=== PATIENT | male | born 1940 | race Caucasian/White ===

== ENCOUNTER → 2018-02-03 08:30 | Outpatient (CLI) | payer MEDICARE, SELFPAY ==
[2018-02-03 09:02] LABS: Hematocrit 43.4 % (41-53); Hemoglobin 15.3 g/dL (13.5-17.5); Mean Corpuscular HGB Conc 35.1 % (30-36); Platelet Count 184 X10^3/uL (150-400); Red Blood Cell Count 4.77 X10^6/uL (4.5-5.9); Red Cell Distribution Width 12.9 % (11.6-14.8); White Blood Cell Count 9.3 X10^3/uL (4.5-11.0)
[2018-02-03 09:33] LABS: Alanine Aminotransferase 22 IU/L (21-72); Albumin 4.2 g/dL (3.5-5.0); Albumin Globulin Ratio 1.7 (1.0-2.8); Alkaline Phosphatase 72 U/L (38-126); Aspartate Aminotransferase 19 IU/L (17-59); BUN Creatinine Ratio 21.8 (6-22); Blood Urea Nitrogen 24 mg/dL (9-20); Calcium 9.1 mg/dL (8.4-10.2); Carbon Dioxide 26 mmol/L (22-32); Chloride 106 mmol/L (98-107); Cholesterol 102 mg/dL (140-199); Estimated Glomerular Filt Rate > 60.0 mL/min (>60); Globulin 2.5 g/dL (1.7-4.1); Glucose 122 mg/dL (80-110); HDL Cholesterol 47 mg/dL (40-60); HEMOLYSIS < 15 (0-50); LDL Cholesterol Calculated 41 mg/dL (<100); Potassium 4.5 mmol/L (3.4-5.1); Sodium 143 mmol/L (137-145); Total Protein 6.7 g/dL (6.3-8.2); Triglycerides 71 mg/dL (35-150)
[2018-02-03 09:51] LABS: Neutrophils Absolute Manual 6138 /uL (3000-5900); RBC Morphology Normal Morphology; Total Cells Counted 100
[2018-02-03 09:58] LABS: Prostate Specific Antigen Scrn 4.03 ng/mL (0.1-4.0)
[2018-02-03 10:03] LABS: Thyroid Stimulating Hormone 2.99 uIU/mL (0.47-4.68)
[2018-02-04 13:41] LABS: Hemoglobin A1C% w Est Avg Glu 5.1 % (4.0-6.0)
== END ==
PROVIDERS: PCP Family Medicine; Visit Provider Family Medicine
DX: E03.9 Hypothyroidism, unspecified (principal); E78.5 Hyperlipidemia, unspecified; I10 Essential (primary) hypertension; I25.10 Atherosclerotic heart disease of native coronary artery without angina pectoris; R73.09 Other abnormal glucose
CPT/HCPCS: 36415; 80053; 80061; 83036; 84443; 85025; G0103

== ENCOUNTER → 2018-03-08 11:11 | Outpatient (CLI) | payer OTHER, SELFPAY ==
[2018-03-08 13:24] LABS: Clostridium Difficile Tox PCR Negative for C. diff
== END ==
PROVIDERS: PCP Family Medicine; Visit Provider Registered Nurse
DX: R19.7 Diarrhea, unspecified (principal)
CPT/HCPCS: 87015; 87045; 87177; 87427; 87493; 87899

== ENCOUNTER → 2018-06-13 13:20 | Outpatient (CLI) | payer MEDICARE, SELFPAY ==
--- NOTE | 2018-06-13 13:22 | DI.RAD.S_ITS ---
PROCEDURE: XR CHEST 2V INDICATIONS: follow up pleural effusion TECHNIQUE: 2 views of the chest were acquired. COMPARISON: [facility], CHEST 2 VIEW, 06/15/2016, 10:54. [facility], , CHEST 1 VIEW, 01/08/2015, 10:34. FINDINGS: Surgical changes and devices: Pacemaking device and single lead appear normal. Lungs and pleura: Lungs are clear except for a mild interstitial prominence and relatively large lung volumes. No left-sided pleural effusions or pneumothorax. Scant right-sided pleural effusion incidentally noted, minimal in quantity. Mediastinum: Mediastinal contours are normal. Heart size is normal. Bones and chest wall: No suspicious bony abnormalities. Soft tissues appear unremarkable. IMPRESSION: Large lung volumes, no acute disease, pacemaker appears normal. Suspect prior smoking history. Scant right effusion. Dictated by: Los Madera M.D. on 06/13/2018 at 14:08 Approved by: Los Madera M.D. on 06/13/2018 at 14:10
== END ==
PROVIDERS: PCP Family Medicine; Visit Provider Hospitalist
DX: J90 Pleural effusion, not elsewhere classified (principal); Z95.0 Presence of cardiac pacemaker
CPT/HCPCS: 71046

== ENCOUNTER → 2018-10-15 12:50 | Outpatient (CLI) | payer MEDICARE, SELFPAY ==
[2018-10-15 14:42] LABS: Hematocrit 43.4 % (41-53); Hemoglobin 15.1 g/dL (13.5-17.5); Mean Corpuscular HGB Conc 34.9 % (30-36); Mean Corpuscular Hemoglobin 32.2 PG (26-34); Mean Corpuscular Volume 92.2 fL (80-100); Platelet Count 182 X10^3/uL (150-400); Red Cell Distribution Width 13.4 % (11.6-14.8); White Blood Cell Count 9.7 X10^3/uL (4.5-11.0)
[2018-10-15 15:07] LABS: Neutrophils Absolute Manual 6596 /uL (3000-5900); Total Cells Counted 100
[2018-10-15 15:08] LABS: RBC Morphology Normal Morphology
[2018-10-15 15:29] LABS: Alanine Aminotransferase 15 IU/L (21-72); Albumin 4.4 g/dL (3.5-5.0); Albumin Globulin Ratio 1.8 (1.0-2.8); Alkaline Phosphatase 76 U/L (38-126); Aspartate Aminotransferase 19 IU/L (17-59); BUN Creatinine Ratio 24.5 (6-22); Bilirubin Total 1.9 mg/dL (0.2-1.3); Blood Urea Nitrogen 27 mg/dL (9-20); Calcium 9.8 mg/dL (8.4-10.2); Carbon Dioxide 27 mmol/L (22-32); Chloride 103 mmol/L (98-107); Estimated Glomerular Filt Rate > 60.0 mL/min (>60); Globulin 2.5 g/dL (1.7-4.1); Glucose 97 mg/dL (80-110); HEMOLYSIS < 15 (0-50); Sodium 139 mmol/L (137-145); Total Protein 6.9 g/dL (6.3-8.2)
[2018-10-15 15:31] LABS: Potassium 5.9 mmol/L (3.4-5.1)
== END ==
PROVIDERS: PCP Family Medicine; Visit Provider Family Medicine
DX: R19.7 Diarrhea, unspecified (principal)
CPT/HCPCS: 36415; 80053; 85025

== ENCOUNTER → 2018-10-16 10:14 | Outpatient (CLI) | payer MEDICARE, SELFPAY ==
[2018-10-16 13:03] LABS: Campylobacter Not Detected (Not Detect); Clostridium difficile toxin AB Not Detected (Not Detect); Cryptosporidium Not Detected (Not Detect); Cyclospora cayetanensis Not Detected (Not Detect); Entamoeba histolytica Not Detected (Not Detect); Enteroaggregative E.coli Not Detected (Not Detect); Enteropathogenic E.coli Not Detected (Not Detect); Enterotoxigenic E.coli It/st Not Detected (Not Detect); Giardia lamblia Not Detected (Not Detect); Plesiomonsa shigelloides Not Detected (Not Detect); Salmonella Not Detected (Not Detect); Shiga-like toxin-prod E.coli Not Detected (Not Detect); Shigella/Enteroinvasive E.coli Not Detected (Not Detect); Vibrio Not Detected (Not Detect); Vibrio cholerae Not Detected (Not Detect); Yersinia enterocolitica Not Detected (Not Detect)
[2018-10-16 13:04] LABS: Adenovirus F 40/41 Not Detected (Not Detect); Astrovirus Not Detected (Not Detect); Norovirus GI/GII Not Detected (Not Detect); Rotavirus A Not Detected (Not Detect)
[2018-10-16 13:22] LABS: Clostridium Difficile Tox PCR Negative for C. diff
== END ==
PROVIDERS: PCP Family Medicine; Visit Provider Family Medicine
DX: R19.7 Diarrhea, unspecified (principal)
CPT/HCPCS: 87493; 87507

== ENCOUNTER → 2018-10-31 14:05 | Outpatient (CLI) | payer MEDICARE, SELFPAY ==
[2018-10-31 15:17] LABS: HEMOLYSIS < 15 (0-50)
[2018-10-31 15:20] LABS: Potassium 5.5 mmol/L (3.4-5.1)
== END ==
PROVIDERS: PCP Family Medicine; Visit Provider Family Medicine
DX: E87.5 Hyperkalemia (principal)
CPT/HCPCS: 36415; 84132

== ENCOUNTER → 2018-12-08 10:59 | Outpatient (CLI) | payer MEDICARE, SELFPAY ==
[2018-12-08 11:34] LABS: BUN Creatinine Ratio 24.2 (6-22); Blood Urea Nitrogen 29 mg/dL (9-20); Calcium 9.3 mg/dL (8.4-10.2); Carbon Dioxide 28 mmol/L (22-32); Chloride 107 mmol/L (98-107); Estimated Glomerular Filt Rate 58.3 mL/min (>60); Glucose 75 mg/dL (80-110); HEMOLYSIS < 15 (0-50); Potassium 4.8 mmol/L (3.4-5.1); Sodium 141 mmol/L (137-145)
--- NOTE | 2018-12-08 12:23 | DI.CT.S_ITS ---
PROCEDURE: CT ABDOMEN PELVIS W CON INDICATIONS: Unspecified jaundice/ LAB TECHNIQUE: After the administration of oral and intravenous contrast, 5 mm thick sections acquired from the diaphragms to the symphysis. 5 mm thick coronal and sagittal reformats were performed. For radiation dose reduction, the following was used: automated exposure control, adjustment of mA and/or kV according to patient size. COMPARISON: None. FINDINGS: Image quality: Excellent. ABDOMEN: Lung bases: Lung bases are abnormal with an appearance suggestive of COPD and alveolar scarring at the right lung base. Lung base atelectasis also could produce the appearance, greater on the right than the left. Heart size is normal. Solid organs: Liver is normal in size and enhancement. Gallbladder contains small rounded densely calcified gallstones within the dependent margin of the gallbladder, without acute cholecystitis or biliary obstruction. These calculi range in size from 3 mm to 6 mm. Biliary system is non-dilated. Pancreas enhances normally. Spleen is normal in size and enhancement. No adrenal nodules. Kidneys are normal in size and enhancement, without hydronephrosis. Peritoneum and bowel: Stomach, small bowel, and colon loops are normal in caliber and wall thickness. No free fluid or air. Nodes and vessels: No retroperitoneal or mesenteric adenopathy. Aorta and inferior vena cava are normal in caliber. Miscellaneous: No ventral hernias. PELVIS: Genitourinary: Bladder wall thickness is normal. Miscellaneous: No inguinal hernias or adenopathy. Bones: No suspicious bony lesions. No vertebral body compression fractures. IMPRESSION: Currently a definite source of acute onset jaundice is not found. Specifically a calcified gallstone within the common duct is not seen nor is biliary distention. The small calculi present within the gallbladder lumen are of a size that easily could transit into the cystic duct and the common duct, and perhaps complete passage of a gallstone explains the symptomatology (a densely calcified gallstone currently present would be easily visualized along the course of the common duct). Surgical consultation likely is warranted. No sign of hepatitis or pancreatitis. Dictated by: Los Madera M.D. on 12/08/2018 at 14:39 Approved by: Los Madera M.D. on 12/08/2018 at 14:48
== END ==
PROVIDERS: Family Provider Family Medicine; PCP Family Medicine; Visit Provider Physician Assistant
DX: R17 Unspecified jaundice (principal); R19.4 Change in bowel habit; K80.20 Calculus of gallbladder without cholecystitis without obstruction
CPT/HCPCS: 36415; 74177; 80048; Q9967

== ENCOUNTER → 2019-10-16 07:36 | Outpatient (CLI) | payer MEDICARE, SELFPAY ==
[2019-10-16 09:04] LABS: Add Manual Diff / Slide Review NO; Basophils Absolute Auto 100 /uL (0-100); Basophils Percent Auto 0.8 % (0-2); Eosinophils Absolute Auto 700 /uL (0-450); Eosinophils Percent Auto 8.4 % (2-4); Hematocrit 40.5 % (41-53); Hemoglobin 14.3 g/dL (13.5-17.5); Lymphocytes Absolute Auto 1400 /uL (1100-4500); Lymphocytes Percent Auto 16.2 % (25-40); Mean Corpuscular HGB Conc 35.2 % (30-36); Mean Corpuscular Volume 90.9 fL (80-100); Monocytes Absolute Auto 600 /uL (0-900); Monocytes Percent Auto 6.5 % (3-14); Neutrophils Absolute Auto 6000 /uL (1500-7000); Neutrophils Percent Auto 68.1 % (50-75); Platelet Count 156 X10^3/uL (150-400); Red Blood Cell Count 4.45 X10^6/uL (4.5-5.9); Red Cell Distribution Width 13.3 % (11.6-14.8); White Blood Cell Count 8.8 X10^3/uL (4.5-11.0)
[2019-10-16 09:14] LABS: Alanine Aminotransferase 13 IU/L (<50); Albumin 4.1 g/dL (3.5-5.0); Albumin Globulin Ratio 1.7 (1.0-2.8); Alkaline Phosphatase 69 U/L (38-126); Aspartate Aminotransferase 19 IU/L (17-59); Bilirubin Total 1.1 mg/dL (0.2-1.3); Blood Urea Nitrogen 32 mg/dL (9-20); Calcium 9.5 mg/dL (8.4-10.2); Carbon Dioxide 22 mmol/L (22-32); Chloride 106 mmol/L (98-107); Cholesterol 104 mg/dL (140-199); Estimated Glomerular Filt Rate 53.9 mL/min (>60); Globulin 2.4 g/dL (1.7-4.1); Glucose 104 mg/dL (80-110); HDL Cholesterol 47 mg/dL (40-60); HEMOLYSIS < 15 (0-50); LDL Cholesterol Calculated 42 mg/dL (<100); Potassium 4.3 mmol/L (3.4-5.1); Sodium 137 mmol/L (137-145); Total Protein 6.5 g/dL (6.3-8.2); Triglycerides 76 mg/dL (35-150)
[2019-10-16 09:40] LABS: Thyroid Stimulating Hormone 3.76 uIU/mL (0.47-4.68)
== END ==
PROVIDERS: Family Provider Family Medicine; PCP Family Medicine; Referring Provider Family Medicine; Visit Provider Family Medicine
DX: E03.9 Hypothyroidism, unspecified (principal); E78.5 Hyperlipidemia, unspecified; I10 Essential (primary) hypertension; I25.10 Atherosclerotic heart disease of native coronary artery without angina pectoris; I25.5 Ischemic cardiomyopathy; I48.91 Unspecified atrial fibrillation; R79.89 Other specified abnormal findings of blood chemistry
CPT/HCPCS: 36415; 80053; 80061; 84443; 85025

== ENCOUNTER → 2019-10-24 13:34 | Outpatient (CLI) | payer MEDICARE, SELFPAY ==
[2019-10-25 09:26] LABS: COVID19 Sendout Not Detected (Not Detect)
== END ==
PROVIDERS: Family Provider Family Medicine; PCP Family Medicine; Visit Provider Physician Assistant
DX: Z11.59 Encounter for screening for other viral diseases (principal)
CPT/HCPCS: 87635

== ENCOUNTER → 2019-10-27 10:09 | Outpatient (CLI) | payer MEDICARE, SELFPAY ==
--- NOTE | 2019-10-27 19:39 | DI.NM.S_ITS ---
DATE OF SERVICE: 10/27/2019 PROCEDURE: Exercise perfusion study. INDICATION: Anterior wall WI, severe ischemic cardiomyopathy, hypertension. RADIOPHARMACEUTICAL: 26.3 millicurie technetium-99m Myoview IV was injected at stress and 12.1 millicurie technetium-99m Myoview IV was injected at rest. CARDIAC STRESS: The patient underwent exercise perfusion study under the supervision of an attending staff using a standard Lv protocol. The patient walked on Lv protocol for 8 minutes 24 seconds and achieved 99 percent of target heart rate with normal blood pressure response. Baseline EKG revealed sinus rhythm with evidence of old anterior wall WI. During stress, significant artifacts seen, which make EKG uninterpretable; however, in 1 minute of recovery, there were some nonspecific ST changes. Some PVCs, including ventricular couplets seen, without any sustained ventricular tachycardia. No chest pain or anginal symptoms. The patient achieved 10.1 METS of workload, NU -58 percent. RAW DATA: There is increased subdiaphragmatic activity. GATED STUDY: Stress LV ejection fraction 27 percent and resting LV ejection fraction 25 percent with significant hypokinesis of mid to distal anterior wall, entire apex, as well as anterior septum. Resting end-diastolic volume 302 mL, suggestive of significantly dilated left ventricle. TID ratio 0.97, which is within normal limits. Lung/heart ratio 0.39 which is within normal limits. MYOCARDIAL PERFUSION: Stress supine, resting supine and stress prone images were compared to each other. 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 No significant reversible ischemia. CONCLUSION: This is an abnormal myocardial perfusion study, consistent with large infarction in the proximal LAD territory, as stated above, without any significant reversible ischemia. Excellent exercise tolerance. Functional aerobic impairment -58 percent. The stress left ventricular ejection fraction 27 percent. The left ventricle is significantly enlarged. Intermittent PVCs were seen without any sustained ventricular tachycardia. Nidia, Duncan - Dayana/daryn doc#: [id number]/job#: [id number] dd: 10/27/2019 16:23:00 dt: 10/27/2019 19:29:00 DICTATING MD/COPIES TO: Aria Ahmadi MD COPIES MNE: MEKHI;
== END ==
PROVIDERS: Family Provider Family Medicine; PCP Family Medicine; Referring Provider Family Medicine; Visit Provider Physician Assistant
DX: R94.39 Abnormal result of other cardiovascular function study (principal); I25.5 Ischemic cardiomyopathy; I10 Essential (primary) hypertension; I25.2 Old myocardial infarction; I49.3 Ventricular premature depolarization
CPT/HCPCS: 78452; 93017; A9502

== ENCOUNTER → 2019-12-04 14:06 | Outpatient (CLI) | payer MEDICARE, SELFPAY ==
[2019-12-04 18:42] LABS: BUN Creatinine Ratio 26.5 (6-22); Blood Urea Nitrogen 31 mg/dL (9-20); Calcium 9.1 mg/dL (8.4-10.2); Carbon Dioxide 28 mmol/L (22-32); Chloride 104 mmol/L (98-107); Estimated Glomerular Filt Rate 59.8 mL/min (>60); Glucose 94 mg/dL (80-110); HEMOLYSIS < 15 (0-50); Potassium 4.8 mmol/L (3.4-5.1); Sodium 139 mmol/L (137-145)
== END ==
PROVIDERS: Family Provider Family Medicine; PCP Family Medicine; Referring Provider Family Medicine; Visit Provider Family Medicine
DX: R79.89 Other specified abnormal findings of blood chemistry (principal)
CPT/HCPCS: 36415; 80048

== ENCOUNTER → 2020-06-06 11:42 | Outpatient (CLI) | payer MEDICARE, SELFPAY ==
[2020-06-06 14:02] LABS: COVID19 -Nasal RAPID Negative (Negative)
== END ==
PROVIDERS: PCP Family Medicine; Visit Provider Physician Assistant
DX: Z20.822 Contact with and (suspected) exposure to COVID-19 (principal)
CPT/HCPCS: 87635; C9803

== ENCOUNTER → 2020-08-02 11:50 | Outpatient (CLI) | payer MEDICARE, SELFPAY ==
[2020-08-02 12:35] LABS: Add Manual Diff / Slide Review NO; Basophils Absolute Auto 0 /uL (0-100); Basophils Percent Auto 0.4 % (0-2); Eosinophils Absolute Auto 700 /uL (0-450); Eosinophils Percent Auto 6.6 % (2-4); Hematocrit 40.1 % (41-53); Hemoglobin 13.9 g/dL (13.5-17.5); Lymphocytes Absolute Auto 1300 /uL (1100-4500); Lymphocytes Percent Auto 11.7 % (25-40); Mean Corpuscular HGB Conc 34.7 % (30-36); Mean Corpuscular Hemoglobin 30.9 PG (26-34); Monocytes Absolute Auto 600 /uL (0-900); Monocytes Percent Auto 5.8 % (3-14); Neutrophils Absolute Auto 8400 /uL (1500-7000); Neutrophils Percent Auto 75.5 % (50-75); Platelet Count 216 X10^3/uL (150-400); Red Blood Cell Count 4.51 X10^6/uL (4.5-5.9); Red Cell Distribution Width 12.9 % (11.6-14.8); White Blood Cell Count 11.1 X10^3/uL (4.5-11.0)
[2020-08-02 12:51] LABS: Alanine Aminotransferase 13 IU/L (<50); Albumin Globulin Ratio 1.4 (1.0-2.8); Alkaline Phosphatase 89 U/L (38-126); Aspartate Aminotransferase 18 IU/L (17-59); BUN Creatinine Ratio 23.8 (6-22); Bilirubin Total 1.1 mg/dL (0.2-1.3); Blood Urea Nitrogen 25 mg/dL (9-20); C-Reactive Protein Quant 1.9 mg/dL (<1.0); Calcium 9.7 mg/dL (8.4-10.2); Carbon Dioxide 24 mmol/L (22-32); Chloride 105 mmol/L (98-107); Estimated Glomerular Filt Rate > 60.0 mL/min (>60); Globulin 2.9 g/dL (1.7-4.1); Glucose 102 mg/dL (80-110); HEMOLYSIS < 15 (0-50); Potassium 4.8 mmol/L (3.4-5.1); Rheumatoid Factor < 8.6 IU/mL (<12.0); Sodium 137 mmol/L (137-145); Total Protein 6.9 g/dL (6.3-8.2)
[2020-08-02 13:02] LABS: Erythrocyte Sedimentation Rate 21 MM/HR (0-15)
[2020-08-02 13:27] LABS: TSH w/ Reflex to FT4 4.03 uIU/mL (0.47-4.68)
[2020-08-04 20:38] LABS: CCP Antibodies IgG/IgA 5 units (0-19)
[2020-08-05 14:08] LABS: ANA Screen, IFA Positive (.)
== END ==
PROVIDERS: PCP Family Medicine; Referring Provider Family Medicine; Visit Provider Family Medicine
DX: M25.50 Pain in unspecified joint (principal); R53.83 Other fatigue
CPT/HCPCS: 36415; 80053; 84443; 85025; 85651; 86038; 86140; 86200; 86430

== ENCOUNTER → 2020-08-23 15:33 | Outpatient (CLI) | payer MEDICARE, SELFPAY ==
--- NOTE | 2020-08-23 15:34 | DI.RAD.S_ITS ---
PROCEDURE: XR HAND RT MIN 3V INDICATIONS: joint pain TECHNIQUE: 3 views of the hand(s) acquired. COMPARISON: None. FINDINGS: Bones: No fractures or dislocations. Carpal bones are normally aligned. No suspicious bony lesions. Mild diffuse joint space narrowing involving the interphalangeal joints and there are several juxta-articular lucencies also present which may represent small erosions. Soft tissues: No suspicious soft tissue calcifications. IMPRESSION: Diffuse joint space narrowing of the interphalangeal joints and multiple juxta-articular lucencies which may represent small bony erosions. Dictated by: Reynaldo HOYT Interpreted: Los Madera MD on 08/23/2020 at 16:08 Transcribed by: HERMAN on 08/23/2020 at 16:08 Approved by: Los Madera M.D. on 08/24/2020 at 7:32
--- NOTE | 2020-08-23 15:34 | DI.RAD.S_ITS ---
PROCEDURE: XR WRIST LT MIN 3V INDICATIONS: joint pain TECHNIQUE: 4 views of the wrist were acquired. COMPARISON: None. FINDINGS: Bones: No fractures or dislocations. No suspicious bony lesions. Scaphoid view: No trauma. Soft tissues: No suspicious soft tissue calcifications. IMPRESSION: No trauma found. Mild degenerative joint space narrowing at the interface between the distal scaphoid and the base of the trapezium. 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 No erosive arthritis found. Dictated by: Los Madera M.D. on 08/23/2020 at 16:46 Approved by: Los Madera M.D. on 08/23/2020 at 16:47
--- NOTE | 2020-08-23 15:34 | DI.RAD.S_ITS ---
PROCEDURE: XR HAND LT MIN 3V INDICATIONS: joint pain TECHNIQUE: 3 views of the hand(s) acquired. COMPARISON: None. FINDINGS: Bones: No fractures or dislocations. Carpal bones are normally aligned. No suspicious bony lesions. Mild diffuse joint space narrowing with periarticular osteophyte formation involving the interphalangeal joints. Juxta-articular lucencies are present involving multiple interphalangeal joints as well as the 1st MCP joint. Soft tissues: No suspicious soft tissue calcifications. IMPRESSION: Diffuse joint space narrowing of the interphalangeal joints and multiple juxta-articular lucencies which may represent small bony erosions. Dictated by: Reynaldo Myers [facility] Interpreted: Los Madera MD on 08/23/2020 at 16:06 Transcribed by: HERMAN on 08/23/2020 at 16:07 Approved by: [place] Madera M.D. on 08/24/2020 at 7:32
--- NOTE | 2020-08-23 15:34 | DI.RAD.S_ITS ---
PROCEDURE: XR WRIST RT MIN 3V INDICATIONS: joint pain TECHNIQUE: For views of the wrist were acquired. COMPARISON: None. FINDINGS: Bones: No fractures or dislocations. No suspicious bony lesions. There is mild osteoarthritis at the radiocarpal joint. No erosive arthritis is found. No prior trauma identified. Scaphoid view: No trauma. Soft tissues: No suspicious soft tissue calcifications. IMPRESSION: Mild osteoarthritis, no prior trauma. Dictated by: Los Madera M.D. on 08/23/2020 at 16:47 Approved by: Los Madera M.D. on 08/23/2020 at 16:47
== END ==
PROVIDERS: PCP Family Medicine; Referring Provider Family Medicine; Visit Provider Family Medicine
DX: M79.89 Other specified soft tissue disorders; M25.542 Pain in joints of left hand; M25.541 Pain in joints of right hand; M25.532 Pain in left wrist; M25.531 Pain in right wrist; M19.031 Primary osteoarthritis, right wrist
CPT/HCPCS: 73110; 73130

== ENCOUNTER → 2020-09-30 13:59 | Outpatient (CLI) | payer MEDICARE, SELFPAY ==
--- NOTE | 2020-09-30 | DI.RAD.S_ITS ---
PROCEDURE: XR KNEE RT 3V INDICATIONS: PAIN TECHNIQUE: 3 views of the knee were acquired. COMPARISON: [facility], CR, XR KNEE LT 3V, 09/30/2020, 14:41. FINDINGS: Bones: No fractures or dislocations. No suspicious bony lesions. Joints are well maintained. Soft tissues: Small joint effusion. No suspicious soft tissue calcifications. IMPRESSION: Small knee joint effusion; otherwise normal right knee. Dictated by: Reynaldo Myers RR Interpreted: Dominique Becerra MD on 09/30/2020 at 15:29 Transcribed by: CARL on 09/30/2020 at 15:29 Approved by: Dominique Becerra M.D. on 09/30/2020 at 15:35
--- NOTE | 2020-09-30 14:09 | DI.RAD.S_ITS ---
PROCEDURE: XR FOOT LT MIN 3V INDICATIONS: A TECHNIQUE: 3 views of the foot were acquired. COMPARISON: None. FINDINGS: Bones: No fractures or dislocations. No suspicious bony lesions. Small retrocalcaneal and plantar bone spurs. Soft tissues: No tibiotalar joint effusion. Achilles tendon appears normal. IMPRESSION: Mild calcaneal enthesopathy; otherwise no definite radiographic abnormality. If pain persists with conservative management, consider cross sectional imaging such as CT or MRI for further assessment. Dictated by: Reynaldo GARCIA Interpreted: Dominique Becerra MD on 09/30/2020 at 15:28 Transcribed by: CARL on 09/30/2020 at 15:28 Approved by: Dominique Becerra M.D. on 09/30/2020 at 15:34
--- NOTE | 2020-09-30 14:09 | DI.RAD.S_ITS ---
PROCEDURE: XR HIP W PEL IF DONE BILAT 2V INDICATIONS: PAIN TECHNIQUE: AP pelvis with lateral view(s) of the bilateral hip(s). COMPARISON: [facility], CT, CT ABDOMEN PELVIS W CON, 12/08/2018, 12:22. FINDINGS: Bones: No fractures or dislocations. Pelvic ring appears intact. No suspicious bony lesions. Mild bilateral symmetric hip joint space narrowing with periarticular osteophyte formation. Degenerative disc and facet disease involves the inferior lumbar spine. Soft tissues: The visualized bowel gas pattern is normal. No suspicious soft tissue calcifications. IMPRESSION: Mild symmetric hip joint degeneration. Dictated by: Reynaldo HOYT Interpreted: Dominique Becerra MD on 09/30/2020 at 15:16 Transcribed by: CARL on 09/30/2020 at 15:17 Approved by: Dominique Becerra M.D. on 09/30/2020 at 15:34
--- NOTE | 2020-09-30 14:09 | DI.RAD.S_ITS ---
PROCEDURE: XR CHEST 2V INDICATIONS: PAIN TECHNIQUE: 2 views of the chest were acquired. COMPARISON: [facility], CT, CT ABDOMEN PELVIS W CON, 12/08/2018, 12:22. [facility], CR, XR CHEST 2VW, 01/19/2015, 7:39. CR, CHEST 2 VIEW, 06/15/2016, 10:54. [facility], CR, XR CHEST 2V, 06/13/2018, 13:25. FINDINGS: Surgical changes and devices: Stable positioning of left chest AICD. Lungs and pleura: Right basilar scarring redemonstrated. There is prominence of the pulmonary vasculature and there is diffuse, widespread bilateral interstitial opacities which appear increased from prior chest radiograph dated 06/13/2018. No pneumothorax. Mediastinum: Mediastinal contours are normal. Heart size is enlarged. Bones and chest wall: No suspicious bony abnormalities. Soft tissues appear unremarkable. IMPRESSION: 1. Chronic right basilar scar pleural scarring. 2. Prominence of the pulmonary vasculature and diffuse bilateral interstitial opacities increased from prior examination. Pulmonary edema or atypical infection cannot be excluded and clinical correlation is and follow-up recommended. Dictated by: Reynaldo GARCIA Interpreted: Dominique Becerra MD on 09/30/2020 at 15:18 Transcribed by: CARL on 09/30/2020 at 15:26 Approved by: Dominique Becerra M.D. on 09/30/2020 at 15:35
--- NOTE | 2020-09-30 14:09 | DI.RAD.S_ITS ---
PROCEDURE: XR FOOT RT MIN 3V INDICATIONS: PAIN TECHNIQUE: 3 views of the foot were acquired. COMPARISON: None. FINDINGS: Bones: No fractures or dislocations. No suspicious bony lesions. Soft tissues: No tibiotalar joint effusion. Achilles tendon appears normal. IMPRESSION: No definite radiographic abnormality. If pain persists with conservative management, consider cross sectional imaging such as CT or MRI for further assessment. Dictated by: Reynaldo Myers [facility] Interpreted: Dominique Becerra MD on 09/30/2020 at 15:27 Transcribed by: CARL on 09/30/2020 at 15:28 Approved by: Dominique Becerra M.D. on 09/30/2020 at 15:36
--- NOTE | 2020-09-30 14:10 | DI.RAD.S_ITS ---
PROCEDURE: XR KNEE LT 3V INDICATIONS: PAIN TECHNIQUE: 3 views of the knee were acquired. COMPARISON: [facility], CR, XR KNEE RT 3V, 09/30/2020, 14:41. FINDINGS: Bones: No fractures or dislocations. No suspicious bony lesions. Joints are well maintained. Soft tissues: Trace joint effusion. No suspicious soft tissue calcifications. IMPRESSION: Trace joint effusion; otherwise no definite radiographic abnormality. If pain persists with conservative management, consider cross sectional imaging such as CT or MRI for further assessment. Dictated by: Reynaldo Myers Cory Interpreted: Dominique Becerra MD on 09/30/2020 at 15:18 Transcribed by: CARL on 09/30/2020 at 15:18 Approved by: Dominique Becerra M.D. on 09/30/2020 at 15:35
[2020-09-30 14:29] LABS: Bacteria Urine None Seen; RBC Urine None Seen (0-5/HPF)
[2020-09-30 15:39] LABS: Add Manual Diff / Slide Review NO; Basophils Absolute Auto 100 /uL (0-100); Basophils Percent Auto 0.5 % (0-2); Eosinophils Absolute Auto 300 /uL (0-450); Eosinophils Percent Auto 2.5 % (2-4); Hematocrit 39.7 % (41-53); Hemoglobin 13.5 g/dL (13.5-17.5); Lymphocytes Absolute Auto 900 /uL (1100-4500); Lymphocytes Percent Auto 8.1 % (25-40); Mean Corpuscular Hemoglobin 30.4 PG (26-34); Mean Corpuscular Volume 89.3 fL (80-100); Monocytes Absolute Auto 700 /uL (0-900); Monocytes Percent Auto 6.7 % (3-14); Neutrophils Absolute Auto 8800 /uL (1500-7000); Neutrophils Percent Auto 82.2 % (50-75); Platelet Count 189 X10^3/uL (150-400); Red Blood Cell Count 4.45 X10^6/uL (4.5-5.9); Red Cell Distribution Width 15.4 % (11.6-14.8); White Blood Cell Count 10.7 X10^3/uL (4.5-11.0)
[2020-09-30 15:48] LABS: Alanine Aminotransferase 16 IU/L (<50); Albumin 3.9 g/dL (3.5-5.0); Albumin Globulin Ratio 1.3 (1.0-2.8); Alkaline Phosphatase 69 U/L (38-126); Aspartate Aminotransferase 19 IU/L (17-59); BUN Creatinine Ratio 22.1 (6-22); Bilirubin Total 1.6 mg/dL (0.2-1.3); Blood Urea Nitrogen 29 mg/dL (9-20); C-Reactive Protein Quant 3.7 mg/dL (<1.0); Calcium 9.4 mg/dL (8.4-10.2); Carbon Dioxide 24 mmol/L (22-32); Chloride 106 mmol/L (98-107); Estimated Glomerular Filt Rate 52.4 mL/min (>60); Globulin 2.9 g/dL (1.7-4.1); Glucose 136 mg/dL (80-110); HEMOLYSIS < 15 (0-50); Potassium 4.6 mmol/L (3.4-5.1); Sodium 138 mmol/L (137-145); Total Protein 6.8 g/dL (6.3-8.2); Uric Acid 7.5 mg/dL (3.5-8.5)
[2020-09-30 15:50] LABS: Rheumatoid Factor < 8.6 IU/mL (<12.0)
[2020-09-30 16:01] LABS: Erythrocyte Sedimentation Rate 17 MM/HR (0-15)
[2020-09-30 16:33] LABS: Appearance Urine UA CLEAR; Bilirubin Urine UA NEGATIVE (NEGATIVE); Color Urine UA YELLOW; Glucose Urine UA NEGATIVE (Negative); Ketones Urine UA NEGATIVE (NEGATIVE); Leukocyte Esterase Urine UA NEGATIVE (NEGATIVE); Nitrite Urine UA NEGATIVE (Negative); Occult Blood Urine UA NEGATIVE (Negative); Protein Urine UA NEGATIVE (Negative); Specific Gravity Urine UA 1.015 (1.000-1.035); Urobilinogen Urine UA 0.2 E.U./dL (0.2); pH Urine UA 6.5 (4.5-8.0)
[2020-09-30 16:42] LABS: Hyaline Casts Urine 5-10/LPF; Squamous Epithelial Cell Urine 0-1 /HPF (0-5/HPF); WBC Urine 1-5/HPF (0-5/HPF)
[2020-09-30 16:43] LABS: Culture Indicated Urine Cult Not Indicated; Mucus Urine 2+ (Negative)
[2020-09-30 16:58] LABS: Protein (Total) Urine Random < 5 mg/dL (0-12)
[2020-10-01 06:27] LABS: Complement C3 121 mg/dL (82-167)
[2020-10-01 18:24] LABS: DNA (DS) Antibody 1 IU/mL (0-9); SS A Ro Sjogrens Antibody < 0.2 AI (0.0-0.9); SS B La Sjogrens Antibody < 0.2 AI (0.0-0.9)
[2020-10-02 19:24] LABS: Complement Total CH50 > 60 U/mL (>41)
[2020-10-03 14:08] LABS: Albumin 3.5 g/dL (2.9-4.4); Alpha-1-Globulin 0.3 g/dL (0.0-0.4); Alpha-2-Globulin 0.8 g/dL (0.4-1.0); Gamma Globulin 0.7 g/dL (0.4-1.8); Globulin Total 2.7 g/dL (2.2-3.9); Protein, Total 6.2 g/dL (6.0-8.5)
[2020-10-03 16:21] LABS: Hep C Virus Ab w/Reflex Quant NEGATIVE s/c (NEGATIVE); Hepatitis B Surface Antigen NEGATIVE s/c (NEGATIVE)
[2020-10-03 21:18] LABS: CCP Antibodies IgG/IgA 5 units (0-19)
[2020-10-04 11:30] LABS: Cytoplasmic C-ANCA <1:20 titer (Neg:<1:20); Perinuclear P-ANCA <1:20 titer (Neg:<1:20)
[2020-10-04 15:57] LABS: Beta Globulin, Ur 30.2 % (.); M-Spike % Not Observed % (Not Observed); Urine Total Protein 11.2 mg/dL (Not Estab.)
[2020-10-05 23:14] LABS: QuantiFERON Mitogen Value >10.00 IU/mL (.); QuantiFERON TB Gold Plus Negative (Negative); QuantiFERON TB1 Ag Value 0.14 IU/mL (.); QuantiFERON TB2 Ag Value 0.16 IU/mL (.)
== END ==
PROVIDERS: PCP Family Medicine; Referring Provider Nurse Practitioner; Visit Provider Nurse Practitioner
DX: M06.4 Inflammatory polyarthropathy (principal); J84.9 Interstitial pulmonary disease, unspecified; M16.0 Bilateral primary osteoarthritis of hip; J98.4 Other disorders of lung; M77.32 Calcaneal spur, left foot; M25.461 Effusion, right knee
CPT/HCPCS: 36415; 71046; 73521; 73562; 73630; 80053; 81001; 84155; 84156; 84165; 84166; 84550; 85025; 85651; 86038; 86140; 86160; 86162; 86200; 86225; 86235; 86256; 86430; 86480; 86803; 87340

== ENCOUNTER → 2020-10-26 09:18 | Outpatient (CLI) | payer MEDICARE, SELFPAY ==
[2020-10-26 12:33] LABS: COVID-19 CEPHEID PCR (VTM/NP) Negative (Negative)
== END ==
PROVIDERS: PCP Family Medicine; Visit Provider Nurse Practitioner
DX: Z20.822 Contact with and (suspected) exposure to COVID-19 (principal); Z01.812 Encounter for preprocedural laboratory examination
CPT/HCPCS: C9803; U0003

== ENCOUNTER → 2020-11-18 07:20 | Outpatient (CLI) | payer MEDICARE, SELFPAY ==
[2020-11-18 08:21] LABS: Add Manual Diff / Slide Review NO; Basophils Absolute Auto 100 /uL (0-100); Basophils Percent Auto 0.5 % (0-2); Eosinophils Absolute Auto 300 /uL (0-450); Eosinophils Percent Auto 3.5 % (2-4); Hematocrit 42.5 % (41-53); Hemoglobin 14.2 g/dL (13.5-17.5); Lymphocytes Absolute Auto 1200 /uL (1100-4500); Lymphocytes Percent Auto 12.6 % (25-40); Mean Corpuscular HGB Conc 33.4 % (30-36); Mean Corpuscular Hemoglobin 30.2 PG (26-34); Mean Corpuscular Volume 90.5 fL (80-100); Monocytes Absolute Auto 700 /uL (0-900); Monocytes Percent Auto 6.9 % (3-14); Neutrophils Absolute Auto 7500 /uL (1500-7000); Neutrophils Percent Auto 76.5 % (50-75); Platelet Count 171 X10^3/uL (150-400); Red Cell Distribution Width 16.5 % (11.6-14.8); White Blood Cell Count 9.8 X10^3/uL (4.5-11.0)
[2020-11-18 08:48] LABS: Alanine Aminotransferase 17 IU/L (<50); Albumin 3.9 g/dL (3.5-5.0); Albumin Globulin Ratio 1.6 (1.0-2.8); Alkaline Phosphatase 72 U/L (38-126); Aspartate Aminotransferase 19 IU/L (17-59); BUN Creatinine Ratio 28.4 (6-22); Bilirubin Total 0.8 mg/dL (0.2-1.3); Blood Urea Nitrogen 27 mg/dL (9-20); Calcium 9.5 mg/dL (8.4-10.2); Carbon Dioxide 31 mmol/L (22-32); Chloride 104 mmol/L (98-107); Cholesterol 115 mg/dL (140-199); Estimated Glomerular Filt Rate > 60.0 mL/min (>60); Globulin 2.4 g/dL (1.7-4.1); Glucose 117 mg/dL (80-110); HDL Cholesterol 59 mg/dL (40-60); HEMOLYSIS < 15 (0-50); LDL Cholesterol Calculated 38 mg/dL (<100); Potassium 4.5 mmol/L (3.4-5.1); Sodium 139 mmol/L (137-145); Total Protein 6.3 g/dL (6.3-8.2); Triglycerides 92 mg/dL (35-150)
[2020-11-18 09:14] LABS: Thyroid Stimulating Hormone 2.99 uIU/mL (0.47-4.68)
[2020-11-18 09:18] LABS: Creatinine Urine Random 89.3 mg/dL
[2020-11-18 09:24] LABS: Microalbumin Urine Random < 0.6 mg/dL (0-1.6)
== END ==
PROVIDERS: PCP Family Medicine; Referring Provider Family Medicine; Visit Provider Family Medicine
DX: E03.9 Hypothyroidism, unspecified (principal); E78.5 Hyperlipidemia, unspecified; E87.5 Hyperkalemia; I10 Essential (primary) hypertension; I25.10 Atherosclerotic heart disease of native coronary artery without angina pectoris
CPT/HCPCS: 36415; 80053; 80061; 82043; 82570; 83036; 84443; 85025

== ENCOUNTER → 2021-06-28 11:01 | Outpatient (CLI) | payer MEDICARE, SELFPAY ==
[2021-06-28 13:49] LABS: COVID-19 CEPHEID PCR (VTM/NP) Negative (Negative)
== END ==
PROVIDERS: PCP Family Medicine; Visit Provider Family Medicine Sleep Medicine
DX: Z20.822 Contact with and (suspected) exposure to COVID-19 (principal)
CPT/HCPCS: C9803; U0003; U0005

== ENCOUNTER → 2021-09-19 10:42 | Outpatient (CLI) | payer MEDICARE, SELFPAY ==
[2021-09-19 11:07] LABS: COVID19 -Nasal RAPID POSITIVE (Negative)
== END ==
PROVIDERS: PCP Family Medicine; Referring Provider Family Medicine; Visit Provider Family Medicine
DX: U07.1 COVID-19 (principal)
CPT/HCPCS: 87635; C9803

== ENCOUNTER → 2021-11-07 10:45 | Outpatient (CLI) | payer MEDICARE, SELFPAY ==
[2021-11-07 12:44] LABS: COVID19 -Nasal RAPID Negative (Negative)
== END ==
PROVIDERS: PCP Family Medicine; Referring Provider Family Medicine; Visit Provider Family Medicine
DX: Z20.822 Contact with and (suspected) exposure to COVID-19 (principal)
CPT/HCPCS: 87635; C9803

== ENCOUNTER → 2021-11-17 07:50 | Outpatient (CLI) | payer MEDICARE, SELFPAY ==
[2021-11-17 09:26] LABS: Add Manual Diff / Slide Review NO; Basophils Absolute Auto 0 /uL (0-100); Basophils Percent Auto 0.4 % (0-2); Eosinophils Absolute Auto 200 /uL (0-450); Eosinophils Percent Auto 1.6 % (2-4); Hematocrit 37.2 % (41-53); Hemoglobin 13.4 g/dL (13.5-17.5); Lymphocytes Absolute Auto 1100 /uL (1100-4500); Lymphocytes Percent Auto 10.8 % (25-40); Mean Corpuscular HGB Conc 35.9 % (30-36); Mean Corpuscular Hemoglobin 32.4 PG (26-34); Mean Corpuscular Volume 90.3 fL (80-100); Monocytes Absolute Auto 500 /uL (0-900); Monocytes Percent Auto 4.8 % (3-14); Neutrophils Absolute Auto 8400 /uL (1500-7000); Neutrophils Percent Auto 82.4 % (50-75); Platelet Count 203 X10^3/uL (150-400); Red Blood Cell Count 4.12 X10^6/uL (4.5-5.9); Red Cell Distribution Width 14.1 % (11.6-14.8); White Blood Cell Count 10.1 X10^3/uL (4.5-11.0)
[2021-11-17 09:32] LABS: Hemoglobin A1C% w Est Avg Glu 6.2 % (4.0-6.0)
[2021-11-17 09:44] LABS: Alanine Aminotransferase 20 IU/L (<50); Albumin 3.8 g/dL (3.5-5.0); Albumin Globulin Ratio 1.4 (1.0-2.8); Alkaline Phosphatase 65 U/L (38-126); Aspartate Aminotransferase 21 IU/L (17-59); BUN Creatinine Ratio 22.1 (6-22); Bilirubin Total 0.6 mg/dL (0.2-1.3); Blood Urea Nitrogen 21 mg/dL (9-20); Calcium 9.1 mg/dL (8.4-10.2); Carbon Dioxide 28 mmol/L (22-32); Chloride 102 mmol/L (98-107); Cholesterol 122 mg/dL (140-199); Estimated Glomerular Filt Rate > 60 mL/min (>60); Globulin 2.7 g/dL (1.7-4.1); Glucose 187 mg/dL (80-110); HDL Cholesterol 50 mg/dL (40-60); HEMOLYSIS < 15 (0-50); LDL Cholesterol Calculated 54 mg/dL (<100); Potassium 4.5 mmol/L (3.4-5.1); Sodium 138 mmol/L (137-145); Total Protein 6.5 g/dL (6.3-8.2); Triglycerides 91 mg/dL (35-150)
[2021-11-17 10:19] LABS: Thyroid Stimulating Hormone 1.92 uIU/mL (0.47-4.68)
[2021-11-17 11:10] LABS: Creatinine Urine Random 60.6 mg/dL
[2021-11-17 11:24] LABS: Microalbumin Urine Random < 0.6 mg/dL (0-1.6)
== END ==
PROVIDERS: PCP Family Medicine; Referring Provider Family Medicine; Visit Provider Family Medicine
DX: E03.9 Hypothyroidism, unspecified (principal); I10 Essential (primary) hypertension; E78.5 Hyperlipidemia, unspecified; I25.10 Atherosclerotic heart disease of native coronary artery without angina pectoris; E87.5 Hyperkalemia; Z13.1 Encounter for screening for diabetes mellitus
CPT/HCPCS: 36415; 80053; 80061; 82043; 82570; 83036; 84443; 85025

== ENCOUNTER → 2021-11-29 10:14 | Outpatient (CLI) | payer MEDICARE, SELFPAY ==
--- NOTE | 2021-11-29 10:15 | DI.RAD.S_ITS ---
PROCEDURE: XR LUMBAR SPINE 2-3V INDICATIONS: Leg and back pain TECHNIQUE: 3 views of the lumbar spine were acquired. COMPARISON: [facility], , L-SPINE 2-3 VIEWS, 05/21/2014, 9:24. FINDINGS: Bones: 5 [id number] vertebrae are present. There is mild levocurvature of the lower lumbar spine. No acute vertebral body compression fractures. No suspicious bony lesions. Moderate multilevel lumbar spondylosis with degenerative endplate changes, disc space loss, and endplate osteophyte formation. Degenerative changes have progressed compared to the prior study. Soft tissues: Overlying bowel gas pattern is normal. No suspicious soft tissue calcifications. IMPRESSION: Lumbar spine without acute fracture or malalignment. Interval progression of moderate multilevel lumbar spondylosis. Dictated by: Armin Almanza M.D. on 11/29/2021 at 12:59 Approved by: Armin Almanza M.D. on 11/29/2021 at 13:01
== END ==
PROVIDERS: PCP Family Medicine; Referring Provider Family Medicine; Visit Provider Family Medicine
DX: M54.9 Dorsalgia, unspecified (principal); M79.606 Pain in leg, unspecified; M47.816 Spondylosis without myelopathy or radiculopathy, lumbar region
CPT/HCPCS: 72100

== ENCOUNTER → 2022-05-15 08:04 | Outpatient (CLI) | payer MEDICARE, SELFPAY ==
[2022-05-15 08:38] LABS: Hemoglobin A1C% w Est Avg Glu 7.5 % (4.0-6.0)
[2022-05-15 08:56] LABS: Creatinine Urine Random 101.5 mg/dL
[2022-05-15 09:02] LABS: Microalbumin Urine Random < 0.6 mg/dL (0-1.6)
[2022-05-15 09:11] LABS: Alanine Aminotransferase 22 IU/L (<50); Albumin Globulin Ratio 1.7 (1.0-2.8); Alkaline Phosphatase 66 U/L (38-126); Aspartate Aminotransferase 19 IU/L (17-59); BUN Creatinine Ratio 23.3 (6-22); Bilirubin Total 1.4 mg/dL (0.2-1.3); Blood Urea Nitrogen 21 mg/dL (9-20); Carbon Dioxide 29 mmol/L (22-32); Chloride 102 mmol/L (98-107); Estimated Glomerular Filt Rate > 60 mL/min (>60); Globulin 2.4 g/dL (1.7-4.1); Glucose 175 mg/dL (80-110); HEMOLYSIS < 15 (0-50); Potassium 4.1 mmol/L (3.4-5.1); Sodium 137 mmol/L (137-145); Total Protein 6.4 g/dL (6.3-8.2)
[2022-05-15 09:16] LABS: Add Manual Diff / Slide Review NO; Basophils Absolute Auto 100 /uL (0-100); Basophils Percent Auto 0.6 % (0-2); Eosinophils Absolute Auto 500 /uL (0-450); Eosinophils Percent Auto 5.3 % (2-4); Hematocrit 38.2 % (41-53); Hemoglobin 13.7 g/dL (13.5-17.5); Lymphocytes Absolute Auto 1500 /uL (1100-4500); Lymphocytes Percent Auto 14.6 % (25-40); Mean Corpuscular HGB Conc 35.8 % (30-36); Mean Corpuscular Hemoglobin 32.4 PG (26-34); Mean Corpuscular Volume 90.6 fL (80-100); Monocytes Absolute Auto 600 /uL (0-900); Monocytes Percent Auto 6.3 % (3-14); Neutrophils Absolute Auto 7400 /uL (1500-7000); Neutrophils Percent Auto 73.2 % (50-75); Platelet Count 171 X10^3/uL (150-400); Red Blood Cell Count 4.22 X10^6/uL (4.5-5.9); Red Cell Distribution Width 13.8 % (11.6-14.8); White Blood Cell Count 10.1 X10^3/uL (4.5-11.0)
== END ==
PROVIDERS: PCP Family Medicine; Referring Provider Family Medicine; Visit Provider Family Medicine
DX: D64.9 Anemia, unspecified (principal); R73.03 Prediabetes; R79.89 Other specified abnormal findings of blood chemistry; R79.9 Abnormal finding of blood chemistry, unspecified
CPT/HCPCS: 36415; 80053; 82043; 82570; 83036; 85025

== ENCOUNTER → 2022-10-24 15:26 | Outpatient (CLI) | payer MEDICARE, SELFPAY | PROVIDERS: Physician Assistant; PCP Family Medicine; Referring Provider Family Medicine; Visit Provider Family Medicine | DX: E11.9 Type 2 diabetes mellitus without complications (principal); Z79.52 Long term (current) use of systemic steroids | CPT/HCPCS: 36415; 83036 ==

== ENCOUNTER → 2022-12-10 12:39 | Outpatient (CLI) | payer MEDICARE, SELFPAY ==
--- NOTE | 2022-12-10 | DI.US.S_ITS ---
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 COMPARISON: None. FINDINGS: No finding to suggest left inguinal hernia in the area of pain indicated by the patient. IMPRESSION: No sonographic evidence for left inguinal hernia. Dictated by: Mary Simmons M.D. on 12/10/2022 at 13:36 Approved by: Mary Simmons M.D. on 12/10/2022 at 13:37
== END ==
PROVIDERS: PCP Family Medicine; Referring Provider Family Medicine; Visit Provider Family Medicine
DX: K40.90 Unilateral inguinal hernia, without obstruction or gangrene, not specified as recurrent (principal)
CPT/HCPCS: 76705

== ENCOUNTER → 2023-02-14 14:02 | Outpatient (CLI) | payer MEDICARE, SELFPAY ==
[2023-02-14 14:34] LABS: Hemoglobin A1C% w Est Avg Glu 6.5 % (4.0-6.0)
[2023-02-14 14:54] LABS: Cholesterol 146 mg/dL (140-199); HDL Cholesterol 60 mg/dL (40-60); LDL Cholesterol Calculated 43 mg/dL (<100); Triglycerides 213 mg/dL (35-150)
[2023-02-14 15:23] LABS: Thyroid Stimulating Hormone 1.34 uIU/mL (0.47-4.68)
[2023-02-14 15:40] LABS: Creatinine Urine Random 103.5 mg/dL
[2023-02-14 15:57] LABS: Microalbumin Urine Random < 0.6 mg/dL (0-1.6)
== END ==
PROVIDERS: PCP Family Medicine; Referring Provider Family Medicine; Visit Provider Family Medicine
DX: E11.9 Type 2 diabetes mellitus without complications (principal); E03.9 Hypothyroidism, unspecified
CPT/HCPCS: 36415; 80061; 82043; 82570; 83036; 84443

== ENCOUNTER → 2023-08-14 06:54 | Outpatient (CLI) | payer MEDICARE, SELFPAY ==
[2023-08-14 08:39] LABS: Alanine Aminotransferase 14 IU/L (<50); Albumin 4.1 g/dL (3.5-5.0); Albumin Globulin Ratio 1.9 (1.0-2.8); Alkaline Phosphatase 71 U/L (38-126); Aspartate Aminotransferase 18 IU/L (17-59); BUN Creatinine Ratio 27.3 (6-22); Bilirubin Total 0.9 mg/dL (0.2-1.3); Blood Urea Nitrogen 27 mg/dL (9-20); Calcium 9.2 mg/dL (8.4-10.2); Carbon Dioxide 26 mmol/L (22-32); Chloride 108 mmol/L (98-107); Cholesterol 138 mg/dL (140-199); Estimated Glomerular Filt Rate > 60 mL/min (>60); Globulin 2.2 g/dL (1.7-4.1); Glucose 160 mg/dL (80-110); HDL Cholesterol 54 mg/dL (40-60); HEMOLYSIS < 15 (0-50); Hemoglobin A1C% w Est Avg Glu 6.4 % (4.0-6.0); LDL Cholesterol Calculated 55 mg/dL (<100); Potassium 4.6 mmol/L (3.4-5.1); Sodium 137 mmol/L (137-145); Total Protein 6.3 g/dL (6.3-8.2); Triglycerides 145 mg/dL (35-150)
[2023-08-14 10:01] LABS: Creatinine Urine Random 80.07 mg/dL
[2023-08-14 10:03] LABS: Microalbumin Urine Random < 0.6 mg/dL (0-1.6)
== END ==
PROVIDERS: PCP Family Medicine; Referring Provider Family Medicine; Visit Provider Family Medicine
DX: E11.9 Type 2 diabetes mellitus without complications (principal); I10 Essential (primary) hypertension; E78.5 Hyperlipidemia, unspecified; E87.5 Hyperkalemia
CPT/HCPCS: 36415; 80053; 80061; 82043; 82570; 83036

== ENCOUNTER → 2023-12-12 13:14 | Outpatient (CLI) | payer MEDICARE, SELFPAY ==
[2023-12-12 13:57] LABS: Hemoglobin A1C% w Est Avg Glu 5.9 % (4.0-6.0)
[2023-12-12 14:35] LABS: Thyroid Stimulating Hormone 3.64 uIU/mL (0.47-4.68)
== END ==
PROVIDERS: PCP Family Medicine; Referring Provider Family Medicine; Visit Provider Family Medicine
DX: E11.9 Type 2 diabetes mellitus without complications (principal); E03.9 Hypothyroidism, unspecified
CPT/HCPCS: 36415; 83036; 84443

== ENCOUNTER → 2024-04-30 14:13 | Outpatient (CLI) | payer MEDICARE, SELFPAY | PROVIDERS: PCP Family Medicine; Visit Provider Nurse Practitioner Family | DX: T14.8XXA Other injury of unspecified body region, initial encounter (principal) | CPT/HCPCS: 87070; 87075; 87205 ==

== ENCOUNTER 2024-08-27 11:16 | Emergency (ER) | payer MEDICARE, SELFPAY ==
[2024-08-27] VITALS (10 sets, daily range): BP systolic 118–129; BP diastolic 56–65; PULSE 60–80; RESP 18–36; TEMP 36.1–36.9; O2SAT 94–100; BMI 23.6
--- NOTE | 2024-08-27 11:33 | EKG_ITS ---
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
--- NOTE | 2024-08-27 11:33 | DI.RAD.S_ITS ---
PROCEDURE: XR CHEST 1V INDICATIONS: Shortness of breath TECHNIQUE: One view of the chest was acquired. COMPARISON: [facility], CR, XR CHEST 2V, 09/30/2020, 14:41. [facility], CR, XR CHEST 2V, 06/13/2018, 13:25. FINDINGS: Surgical changes and devices: Pacemaking device and lead remain in normal position. Lungs and pleura: Lungs are abnormal with a chronic interstitial prominence that appears to have slowly worsened from 2019 to the current study.. No pleural effusions or pneumothorax. Mediastinum: Mediastinal contours appear normal. Heart size is normal. Bones and chest wall: No suspicious bony lesions. Overlying soft tissues appear unremarkable. IMPRESSION: Slowly progressive chronic interstitial lung disease, no focal pneumonia found. Cardiac pacemaking device and single lead remain in normal position. Dictated by: Los Madera M.D. on 08/27/2024 at 12:39 Approved by: Los Madera M.D. on 08/27/2024 at 12:40
[2024-08-27 11:53] LABS: Add Manual Diff / Slide Review NO; Hematocrit 39.1 % (41-53); Hemoglobin 13.3 g/dL (13.5-17.5); Lymphocytes Absolute Auto 700 /uL (1100-4500); Mean Corpuscular HGB Conc 34.1 % (30-36); Mean Corpuscular Hemoglobin 31.5 PG (26-34); Mean Corpuscular Volume 92.2 fL (80-100); Platelet Count 172 X10^3/uL (150-400)
[2024-08-27 12:01] LABS: INR 1.5 (0.9-1.3); Prothrombin Time 16.7 SECONDS (9.4-12.5)
[2024-08-27 12:05] LABS: Alanine Aminotransferase 15 IU/L (<50); Albumin 4.4 g/dL (3.5-5.0); Albumin Globulin Ratio 1.6 (1.0-2.8); Alkaline Phosphatase 68 U/L (38-126); Blood Urea Nitrogen 24 mg/dL (9-20); Calcium 9.2 mg/dL (8.4-10.2); Carbon Dioxide 25 mmol/L (22-32); Chloride 107 mmol/L (98-107); Estimated Glomerular Filt Rate > 60 mL/min (>60); Globulin 2.8 g/dL (1.7-4.1); Glucose 154 mg/dL (70-99); HEMOLYSIS < 15 (0-50); Potassium 5.1 mmol/L (3.4-5.1); Sodium 139 mmol/L (137-145); Total Protein 7.2 g/dL (6.3-8.2)
[2024-08-27 12:06] LABS: Lactate (Lactic Acid) 0.6 mmol/L (0.7-2.1)
[2024-08-27 12:17] LABS: NT-proBNP (BNP-Adult 18+) 2350 pg/mL (<450); Troponin I 0.016 ng/mL (0.01-0.034)
--- NOTE | 2024-08-27 14:47 | ED.SOB ---
HPI - SOB/Dyspnea General Chief Complaint: Shortness of Breath/Dyspnea Stated Complaint: Sent from PCP low O2, Dizzy x 7 days Time Seen by Provider: 08/27/24 14:32 Source: patient Mode of arrival: Ambulatory History of Present Illness HPI Narrative: Patient here with and daughter for complaints of shortness of breath over the past week. 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 He is on home oxygen as needed. However in the past week he has required continuous nasal cannula. He is unsure how much he requires because they usually just turn it up to 4 L. Denies denies any chest pain or limb swelling. No recent illness. Patient is followed by [facility] pulmonary group. Patient in no distress at this time. Patient has had off and on dizziness Related Data Home Medications ?Medication ?Instructions ?Recorded ?Confirmed carvedilol 6.25 mg tablet 6.25 mg PO BID 90 days #180 tabs 04/16/18 04/30/24 apixaban 5 mg tablet (Eliquis) 5 mg PO BID 10/20/19 04/30/24 clopidogrel 75 mg tablet 75 mg PO DAILY 10/20/19 04/30/24 duloxetine 60 mg capsule,delayed 60 mg PO DAILY 12/03/22 04/30/24 release gabapentin 300 mg capsule 300 mg PO TID 12/03/22 04/30/24 modafinil 100 mg tablet 100 mg PO QAM 12/03/22 04/30/24 sertraline 100 mg tablet 100 mg PO DAILY 12/03/22 04/30/24 trazodone 50 mg tablet 75 mg PO BEDTIME 12/03/22 04/30/24 prednisone 5 mg tablet 5 mg PO DAILY 12/10/23 04/30/24 Previous Rx's ?Medication ?Instructions ?Recorded hydroxyzine HCl 10 mg tablet 10 mg PO TID PRN itching #40 tabs 09/24/22 atorvastatin 40 mg tablet 40 mg PO ONCE PM #90 tabs 03/12/23 lisinopril 5 mg tablet 5 mg PO DAILY #90 tabs 06/12/24 Allergies Allergy/AdvReac Type Severity Reaction Status Date / Time amiodarone (AMIODARONE) Allergy Severe pulmonary Verified 08/27/24 11:33 fibrosis Review of Systems Review of Systems Narrative: GENERAL: Negative chills, fatigue, malaise, fever, sweats. HEENT: Negative sinus pain, ear pain, sore throat RESPIRATORY: Positive dyspnea, negative cough CARDIOVASCULAR: Negative chest pain, palpitations GASTROINTESTINAL: Negative vomiting, nausea, abdominal pain : Negative dysuria, frequency, hematuria MUSCULOSKELETAL: Negative muscle or bony pain SKIN: Negative rash, skin lesions NEUROLOGIC: Negative weakness, numbness, positive dizziness ROS Unobtainable: All systems reviewed & are unremarkable except as noted in HPI and below Patient History Medical History (Updated 08/27/24 @ 16:38 by Duncan Smith MD) Diabetes Essential hypertension History of vaccination (2011) Hypoglycemia without diagnosis of diabetes mellitus Myocardial infarction (07/2014) Heart failure, systolic CAD (coronary artery disease) Left hip pain (2014) Neck pain (2014) Shoulder pain Itching (2014) Plantar warts (1984) Tinnitus (2011) Elevated PSA (1987) GERD (gastroesophageal reflux disease) (1992) BPH (benign prostatic hyperplasia) (1989) Cataract (2009) Mumps (194) Osteoarthritis Depression (1983) Anxiety (1949) Atrial fibrillation Hyperlipidemia Interstitial lung disease Acute myocardial infarction of anterior wall (08/09/14) Surgical History Anesthesia Implantable cardioverter-defibrillator (ICD) in situ (12/2014) History of cataract removal with insertion of prosthetic lens (2012) History of angioplasty (07/2014) Status post colonoscopy (2005) Status post transurethral resection of prostate (1997) History of esophageal dilatation (2000) Family History Father Cancer Grandfather Cancer Grandmother Stroke Mother Alcoholism Mental health problem Grandfather Pancreatic cancer Grandfather Cancer Social History marital status: number of children: 4 household members: spouse lives independently: Yes caregiver/support person: No housing: house pets and animals: Yes education level: college occupational status: previously employed special sharan needs: No leisure activities: other other: travel seatbelt use: always helmet use: Yes water heater temp set < 120 deg: Yes working smoke detector in home: Yes fire extinguisher in home: Yes carbon monox detector in home: No firearms in home: Yes firearms unloaded and locked: Yes do you feel safe at home: Yes Smoking Status: Never smoker second hand exposure: No alcohol intake: current substance use type: does not use during the past year weight has: remained stable well-balanced diet: daily or most days daily servings fruits/ve-4 caffeine: Yes eating out: 1-3 times/week Type(s) of exercise: walking frequency: daily duration: 30-45 minutes/day Smoking Status: Never smoker Exam Narrative Exam Narrative: GENERAL: in no distress, not toxic not dyspneic HEAD: Normocephalic. EYES: Pupils equal round ENT: Mucous membranes moist. NECK: Trachea midline. CARDIOVASCULAR: Regular rate and rhythm RESPIRATORY: Clear to auscultation. Breath sounds equal bilaterally. No wheezes, rales, or rhonchi. Speaking full sentences comfortably. GASTROINTESTINAL: Abdomen soft, non-tender EXTREMITIES: No gross deformities. BACK: No flank tenderness. NEURO: AOx4. Clear speech no facial droop light touch intact to bilateral face and hands strong equal video photographer negative pronator drift. Fast exam is negative. SKIN: Warm and dry PSYCH: Not anxious, is cooperative Initial Vital Signs Initial Vital Signs: Vital Signs Temperature 97 F L 08/27/24 11:27 Pulse Rate 80 08/27/24 11:27 Respiratory Rate 18 08/27/24 11:27 Blood Pressure 121/62 08/27/24 11:27 Pulse Oximetry 100 08/27/24 11:27 Oxygen Delivery Method Room Air 08/27/24 11:27 Course Orders Ordered: Discontinued Medications Sodium Chloride (Sodium Chloride 0.9% Flush) 50 ml IV NOW ONE Stop: 08/27/24 16:35 Vital Signs Vital signs: Vital Signs - 8 hr 08/27/24 11:27 08/27/24 14:16 08/27/24 14:17 Temperature 97 F L Pulse Rate 80 64 64 Respiratory Rate 18 Blood Pressure 121/62 Pulse Oximetry 100 99 99 Oxygen Delivery Method Room Air Nasal Cannula Oxygen Flow Rate 4 08/27/24 14:17 08/27/24 14:30 08/27/24 14:30 Temperature Pulse Rate 61 Respiratory Rate 36 H Blood Pressure 123/61 119/58 L Pulse Oximetry 100 Oxygen Delivery Method Oxygen Flow Rate 08/27/24 15:05 08/27/24 15:06 08/27/24 15:06 Temperature Pulse Rate 63 62 Respiratory Rate 29 H 30 H Blood Pressure 118/56 L Pulse Oximetry 99 99 Oxygen Delivery Method Oxygen Flow Rate MDM - SOB/Dyspnea Lab Data 08/27/24 11:44 08/27/24 11:44 Labs: Lab Results 08/27/24 Range/Units 11:44 WBC 10.6 (4.5-11.0) X10^3/uL RBC 4.24 L (4.5-5.9) X10^6/uL Hgb 13.3 L (13.5-17.5) g/dL Hct 39.1 L (41-53) % MCV 92.2 (80-100) fL MCH 31.5 (26-34) PG MCHC 34.1 (30-36) % RDW 13.9 (11.6-14.8) % Plt Count 172 (150-400) X10^3/uL Neut % (Auto) 81.2 H (50-75) % Lymph % (Auto) 6.8 L (25-40) % [place] % (Auto) 4.0 (3-14) % Eos % (Auto) 7.5 H (2-4) % Baso % (Auto) 0.5 (0-2) % Neut # (Auto) 8600 H (5522-1119) /uL Lymph # (Auto) 700 L (2387-7249) /uL [place] # (Auto) 400 (0-900) /uL Eos # (Auto) 800 H (0-450) /uL Baso # (Auto) 100 (0-100) /uL PT 16.7 H (9.4-12.5) SECONDS INR 1.5 H (0.9-1.3) Sodium 139 (137-145) mmol/L Potassium 5.1 (3.4-5.1) mmol/L Chloride 107 (98-107) mmol/L Carbon Dioxide 25 (22-32) mmol/L BUN 24 H (9-20) mg/dL Creatinine 0.95 (0.66-1.25) mg/dL Estimated GFR > 60 (>60) mL/min BUN/Creatinine Ratio 25.3 H (6-22) Glucose 154 H (70-99) mg/dL Lactate 0.6 L (0.7-2.1) mmol/L Calcium 9.2 (8.4-10.2) mg/dL Total Bilirubin 1.3 (0.2-1.3) mg/dL AST 22 (17-59) IU/L ALT 15 (<50) IU/L Alkaline Phosphatase 68 (38-126) U/L Troponin I 0.016 (0.01-0.034) ng/mL NT-Pro-B Natriuret Pep 2350 H (<450) pg/mL Total Protein 7.2 (6.3-8.2) g/dL Albumin 4.4 (3.5-5.0) g/dL Globulin 2.8 (1.7-4.1) g/dL Albumin/Globulin Ratio 1.6 (1.0-2.8) Imaging Data Chest x-ray: Radiologist's Impression: [address] [address] XRay Report Signed Patient: Duncan Jacob MR#: [id number] : 1940 Acct:[id number] Age/Sex: 84 / M Date of Service: 08/27/24 Loc: ED Accession Number: [id number] Procedure: XR chest 1V Ordering Provider: Duncan Smith MD PROCEDURE: XR CHEST 1V INDICATIONS: Shortness of breath TECHNIQUE: One view of the chest was acquired. COMPARISON: [facility], CR, XR CHEST 2V, 09/30/2020, 14:41. [facility], CR, XR CHEST 2V, 06/13/2018, 13:25. FINDINGS: Surgical changes and devices: Pacemaking device and lead remain in normal position. Lungs and pleura: Lungs are abnormal with a chronic interstitial prominence that appears to have slowly worsened from 2019 to the current study.. No pleural effusions or pneumothorax. Mediastinum: Mediastinal contours appear normal. Heart size is normal. Bones and chest wall: No suspicious bony lesions. Overlying soft tissues appear unremarkable. IMPRESSION: Slowly progressive chronic interstitial lung disease, no focal pneumonia found. Cardiac pacemaking device and single lead remain in normal position. Dictated by: [place] M.D. on 08/27/2024 at 12:39 Approved by: [place] M.D. on 08/27/2024 at 12:40 CT scan - head: Radiologist's Impression: [address] [address] [address] Scan Report Signed Patient: Duncan Jacob MR#: [id number] : 1940 Acct:[id number] Age/Sex: 84 / M Date of Service: 08/27/24 Loc: ED Accession Number: [id number] Procedure: CT head/brain wo con Ordering Provider: Duncan Smith MD PROCEDURE: CT HEAD/BRAIN WO CON INDICATIONS: Dizzy TECHNIQUE: Noncontrast 4.5 mm thick angled axial sections acquired from the foramen magnum to the vertex, with coronal and sagittal reformats. For radiation dose reduction, the following was used: automated exposure control, adjustment of mA and/or kV according to patient size. COMPARISON: None. FINDINGS: Image quality: Diagnostic. CSF spaces: Basal cisterns are patent. No extra-axial fluid collections. The ventricles are symmetric in size and shape. Brain: No intracranial bleeds or mass effect. There is cerebral volume loss, with resultant ventricular and sulcal prominence. There are periventricular and deep white matter chronic small vessel ischemic changes. There is intracranial internal carotid artery atherosclerosis. Skull and face: Calvarium and visualized facial bones appear intact, without suspicious lesions. Sinuses: Visualized sinuses and mastoids are clear. IMPRESSION: 1. No acute intracranial process. 2. Moderate atrophy and chronic microvascular ischemic changes. Dictated by: Ayana Stone M.D. on 08/27/2024 at 15:47 Approved by: Ayana Stone M.D. on 08/27/2024 at 15:48 CT scan - chest: Radiologist's Impression: [place] [address] CT Scan Report Signed Patient: Duncan Jacob MR#: [id number] : 1940 Acct:[id number] Age/Sex: 84 / M Date of Service: 08/27/24 Loc: ED Accession Number: [id number] Procedure: CT angio chest PE protocol Ordering Provider: Duncan Smith MD PROCEDURE: CT ANGIO CHEST PE PROTOCOL INDICATIONS: Dyspnea TECHNIQUE: After the administration of intravenous contrast, 2 mm thick sections acquired from the pulmonary apices to the posterior costophrenic angles. 3-dimensional maximum intensity projection (MIP) coronal and sagittal reformats were then acquired through the thorax. For radiation dose reduction, the following was used: automated exposure control, adjustment of mA and/or kV according to patient size. COMPARISON: None. FINDINGS: Image quality: Diagnostic. Pulmonary arteries: Pulmonary arteries are normal in size, and demonstrate no intraluminal filling defects to suggest central pulmonary embolism. Lower Neck: No enlarged lymph nodes. Thyroid: No thyroid nodules which require sonographic follow up, per consensus guidelines. Axillae: No enlarged lymph nodes. Chest Wall: Unremarkable. Bones: Unremarkable. Lungs and Pleura: No pneumothorax. Like interstitial pulmonary changes are present progressive since 2016. Minimal effusion. Heart: Heart size is . No pericardial effusion. Thoracic Vessels: No aortic aneurysm. Mediastinum and [place]: No enlarged lymph nodes. Esophagus: No wall thickening. Moderate hiatal hernia. Upper Abdomen: Dependent luminal gallstones without wall thickening. Right renal cyst. IMPRESSION: No pulmonary embolus. Chronic interstitial pulmonary changes progressive since 2016. Minimal right effusion. Dictated by: Ayana Stone M.D. on 08/27/2024 at 15:48 Approved by: Ayana Stone M.D. on 08/27/2024 at 15:51 [facility] Narrative Medical decision making narrative: Patient here with and daughter for complaints of shortness of breath over the past week. 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 He is on home oxygen as needed. However in the past week he has required continuous nasal cannula. He is unsure how much he requires because they usually just turn it up to 4 L. Denies denies any chest pain or limb swelling. No recent illness. Patient is followed by [facility] pulmonary group. Patient in no distress at this time. Patient also has been off and on dizziness. After history and exam, CBC CMP troponin BNP chest x-ray EKG CT chest CT head [facility] Medical records reviewed: No recent visit for this complaint Differential considered: Includes but not limited to pneumonia pulmonary fibrosis deconditioning, bronchitis, CHF, pulmonary embolism, stroke Lab Test results independently reviewed as above. Pertinent findings: WBC 10.6 hemoglobin 13.3 INR 1.5 sodium 139 potassium 5.1 BUN 24 creatinine 0.95 GFR greater than 60 troponin 0.016 BNP 2350 Independently reviewed EKG normal sinus rhythm rate [address] elevation or depression Imaging studies independently reviewed: Chest x-ray slowly progressive chronic interstitial lung disease. Consultations: None indicated at this time Re-evaluations: 4:38 p.m.. Patient symptoms have resolved. He has been up and walking to the bathroom on room air without ataxia or dizziness. No dyspnea. 97% room air. He is feeling much better. Reviewed results with patient and family. They desire discharge home. Discussion: Appropriate for discharge home. Exam is reassuring. Patient is idiopathic pulmonary fibrosis his likely worsening but waxing and waning. At this time he is asymptomatic at time of discharge. Return precautions reviewed. They desire discharge home. Dyspnea can cause dizziness. Patient likely not having stroke. Diagnosis: Pulmonary fibrosis Discharge Plan Departure Patient Disposition: Home Clinical Impression: Pulmonary fibrosis Instructions: Idiopathic Pulmonary Fibrosis Activity Restrictions/Additional Instructions: I am glad you are feeling better. 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 Continue home medications. Today's exam and laboratory studies imaging studies are reassuring. Return if worse if any questions or concerns. Prescriptions: No Action prednisone 5 mg tablet 5 mg PO DAILY Eliquis 5 mg tablet 5 mg PO BID clopidogrel 75 mg tablet 75 mg PO DAILY hydroxyzine HCl 10 mg tablet 10 mg PO TID PRN (Reason: itching) Qty: 40 2RF modafinil 100 mg tablet 100 mg PO QAM trazodone 50 mg tablet 75 mg PO BEDTIME gabapentin 300 mg capsule 300 mg PO TID duloxetine 60 mg capsule,delayed release(DR/EC) 60 mg PO DAILY sertraline 100 mg tablet 100 mg PO DAILY atorvastatin 40 mg tablet 40 mg PO ONCE PM Qty: 90 3RF lisinopril 5 mg tablet 5 mg PO DAILY Qty: 90 0RF carvedilol 6.25 mg tablet 6.25 mg PO BID 90 Days Qty: 180 Referrals: Cici Parks MD [Primary Care Provider, Family Practice] Stand Alone Forms: Patient Portal/API
--- NOTE | 2024-08-27 15:58 | PC.NURSE ---
Patient ambulated to the bathroom with RN monitoring SPO2. Patients O2 sats were 94-97%, RN then brought patient for a walk around the unit. The lowest his O2 sats got was 90% however he did go back up to mid 90's when back in bed resting.
== END 2024-08-27 16:49 | disposition home or self-care (01) ==
PROVIDERS: Emergency Provider Emergency Medicine; PCP Family Medicine
DX: J84.10 Pulmonary fibrosis, unspecified (principal); R42 Dizziness and giddiness
CPT/HCPCS: 36415; 70450; 71045; 71275; 80053; 83605; 83880; 84484; 85025; 85610; 93005; 93010; 99284; Q9967

== ENCOUNTER → 2024-10-07 07:42 | Outpatient (CLI) | payer MEDICARE, SELFPAY ==
[2024-10-07 09:38] LABS: NT-proBNP (BNP-Adult 18+) 2060 pg/mL (<450)
[2024-10-07 13:39] LABS: Creatine Kinase 28 U/L (55-170)
== END ==
PROVIDERS: PCP Family Medicine; Referring Provider Internal Medicine Pulmonary Disease; Visit Provider Internal Medicine Pulmonary Disease
DX: R06.02 Shortness of breath (principal)
CPT/HCPCS: 36415; 82550; 83880; 86038

== ENCOUNTER → 2024-12-01 11:46 | Outpatient (CLI) | payer MEDICARE, SELFPAY ==
[2024-12-01 18:50] LABS: Blood Urea Nitrogen 25 mg/dL (9-20); Calcium 8.6 mg/dL (8.4-10.2); Carbon Dioxide 26 mmol/L (22-32); Chloride 100 mmol/L (98-107); Estimated Glomerular Filt Rate > 60 mL/min (>60); Glucose 337 mg/dL (70-99); HEMOLYSIS < 15 (0-50); Potassium 4.9 mmol/L (3.4-5.1); Sodium 132 mmol/L (137-145)
== END ==
PROVIDERS: PCP Family Medicine; Referring Provider Internal Medicine Cardiovascular Disease; Visit Provider Internal Medicine Cardiovascular Disease
DX: I25.10 Atherosclerotic heart disease of native coronary artery without angina pectoris (principal); I25.5 Ischemic cardiomyopathy; I48.0 Paroxysmal atrial fibrillation; I50.22 Chronic systolic (congestive) heart failure
CPT/HCPCS: 36415; 80048

== ENCOUNTER 2024-12-02 11:21 | Observation (INO) | payer MEDICARE, SELFPAY ==
[2024-12-02] VITALS (27 sets, daily range): BP systolic 98–145; BP diastolic 47–84; PULSE 70–89; RESP 16–39; TEMP 36.4–36.7; O2SAT 94–98; BMI 24.3
--- NOTE | 2024-12-02 11:39 | DI.RAD.S_ITS ---
PROCEDURE: XR CHEST 1V INDICATIONS: Shortness of breath TECHNIQUE: One view of the chest was acquired. COMPARISON: [facility], CR, XR CHEST 1V, 08/27/2024, 12:03. [facility], CR, XR CHEST 2V, 09/30/2020, 14:41. FINDINGS: Surgical changes and devices: Left chest wall Port-A-Cath Lungs and pleura: Small right pleural effusion. Prominent interstitial markings, most pronounced within the lower lung quinones. Mediastinum: Mediastinal contours appear normal. Heart size is enlarged. Bones and chest wall: No suspicious bony lesions. Overlying soft tissues appear unremarkable. IMPRESSION: Cardiomegaly with prominent interstitial markings and small right pleural effusion. Findings are concerning for CHF/volume overload. Recommend clinical correlation. Dictated by: Niall Duncan M.D. on 12/02/2024 at 12:15 Approved by: Niall Duncan M.D. on 12/02/2024 at 12:16
--- NOTE | 2024-12-02 11:39 | EKG_ITS ---
[address] [address] Test Date: 2024-12-02 Pat Name: Duncan Jacob Department: Room: Gender: Male Verification Lead: ERNIE : 1940 Requested By: Order Number: [id number] Reading MD: Monico Ayala Measurements Intervals [place] Rate: 72 P: 22 IN: 184 QRS: 25 QRSD: 108 T: 122 QT: 398 QTc: 435 Interpretive Statements Sinus rhythm with occasional premature ventricular complexes Cannot rule out Anterior infarct , age undetermined Electronically Signed On 12-03-2024 17:05:35 PDT by Monico Ayala
--- NOTE | 2024-12-02 11:39 | ED.SOB ---
HPI - SOB/Dyspnea General Chief Complaint: Shortness of Breath/Dyspnea Stated Complaint: SOB, Tired, not feeling well Time Seen by Provider: 12/02/24 11:29 Mode of arrival: Ambulatory History of Present Illness HPI Narrative: 84-year-old gentleman history of pulmonary fibrosis for past 8-10 years chronically on 4 L O2, htn, dm, cad, chf, presents with lethargy no energy wants to sleep all day a nonproductive cough for the past 2 weeks. He denies fever, chest pain, abdomen pain, chills, bodyaches, sore throat, nausea, vomiting, diarrhea, urinary complaints. Other than what is stated 14 point review of system is negative. Related Data Home Medications ?Medication ?Instructions ?Recorded ?Confirmed carvedilol 6.25 mg tablet 6.25 mg PO BID 90 days #180 tabs 04/16/18 09/11/24 apixaban 5 mg tablet (Eliquis) 5 mg PO BID 10/20/19 09/11/24 clopidogrel 75 mg tablet 75 mg PO DAILY 10/20/19 09/11/24 duloxetine 60 mg capsule,delayed 60 mg PO DAILY 12/03/22 09/11/24 release prednisone 5 mg tablet 5 mg PO DAILY 12/10/23 09/11/24 Previous Rx's ?Medication ?Instructions ?Recorded hydroxyzine HCl 10 mg tablet 10 mg PO TID PRN itching #40 tabs 09/24/22 atorvastatin 40 mg tablet 40 mg PO ONCE PM #90 tabs 03/12/23 lisinopril 5 mg tablet 5 mg PO DAILY #90 tabs 06/12/24 trazodone 50 mg tablet 100 mg (2 x 50 mg) PO ONCE for 10/22/24 insomnia #135 tabs sertraline 100 mg tablet 150 mg (1.5 x 100 mg) PO DAILY 11/09/24 #135 tabs modafinil 100 mg tablet 100 mg PO QAM #90 tabs 11/10/24 gabapentin 300 mg capsule 300 mg PO 3XD #270 caps 11/30/24 Allergies Allergy/AdvReac Type Severity Reaction Status Date / Time amiodarone (AMIODARONE) Allergy Severe pulmonary Verified 09/11/24 14:59 fibrosis Review of Systems Review of Systems ROS Unobtainable: All systems reviewed & are unremarkable except as noted in HPI and below Patient History Medical History (Updated 10/08/25 @ 14:58 by Nick Davison, DO) Diabetes Essential hypertension History of vaccination (2011) Hypoglycemia without diagnosis of diabetes mellitus Myocardial infarction (07/2014) Heart failure, systolic CAD (coronary artery disease) Left hip pain (2014) Neck pain (2014) Shoulder pain Itching (2014) Plantar warts (1984) Tinnitus (2011) Elevated PSA (1987) GERD (gastroesophageal reflux disease) (1992) BPH (benign prostatic hyperplasia) (1989) Cataract (2009) Mumps (1947) Osteoarthritis Depression (1983) Anxiety (1949) Atrial fibrillation Hyperlipidemia Interstitial lung disease Acute myocardial infarction of anterior wall (08/09/14) Surgical History Anesthesia Implantable cardioverter-defibrillator (ICD) in situ (12/2014) History of cataract removal with insertion of prosthetic lens (2012) History of angioplasty (07/2014) Status post colonoscopy (2005) Status post transurethral resection of prostate (1997) History of esophageal dilatation (2000) Family History Father Cancer Grandfather Cancer Grandmother Stroke Mother Alcoholism Mental health problem Grandfather Pancreatic cancer Grandfather Cancer Social History marital status: number of children: 4 household members: spouse lives independently: Yes caregiver/support person: No housing: house pets and animals: Yes education level: college occupational status: previously employed special sharan needs: No leisure activities: other other: travel seatbelt use: always helmet use: Yes water heater temp set < 120 deg: Yes working smoke detector in home: Yes fire extinguisher in home: Yes carbon monox detector in home: No firearms in home: Yes firearms unloaded and locked: Yes do you feel safe at home: Yes second hand exposure: No alcohol intake: current substance use type: does not use during the past year weight has: remained stable well-balanced diet: daily or most days daily servings fruits/ve-4 caffeine: Yes eating out: 1-3 times/week Type(s) of exercise: walking frequency: daily duration: 30-45 minutes/day Exam Narrative Exam Narrative: GENERAL: [84] year old patient appears stated age. Well-developed patient, in mild distress. HEAD: Atraumatic. Normocephalic. EYES: Pupils equal round and reactive. Extraocular motions intact. No scleral icterus. No injection or drainage. ENT: Nose without bleeding, purulent drainage. Throat without erythema, tonsillar hypertrophy or exudate. Airway patent. NECK: Trachea midline. Non tender CARDIOVASCULAR: Regular rate and rhythm without murmurs, gallops, or rubs. RESPIRATORY: Clear to auscultation. Breath sounds equal bilaterally. No wheezes, rales, or rhonchi. GASTROINTESTINAL: Abdomen soft, non-tender, nondistended. EXTREMITIES: No edema or joint tenderness. BACK: Nontender without deformity or crepitance. No flank tenderness. NEURO: AOx3. SKIN: No rash or erythema of visible areas Initial Vital Signs Initial Vital Signs: Vital Signs Temperature 98.1 F 12/02/24 11:34 Pulse Rate 72 12/02/24 11:34 Respiratory Rate 18 12/02/24 11:34 Blood Pressure 98/53 L 12/02/24 11:34 Pulse Oximetry 96 12/02/24 11:34 Oxygen Delivery Method Nasal Cannula 12/02/24 11:34 Oxygen Flow Rate 4 12/02/24 11:34 Course Orders Ordered: ED Orders 12/02/24 11:39 XR chest 1V Stat EKG-12 Lead Stat Measure peak expiratory flow STAT RT Consult Eval and Treat STAT 12/02/24 11:42 Complete Blood Count AUTO DIFF Stat Comprehensive Metabolic Panel Stat Covid-19 + FLU A/B + RSV - PCR Stat Lactate (Lactic Acid) Stat NT-proBNP (BNP-Adult 18+) Stat Prothrombin Time INR Stat Troponin I Stat 12/02/24 12:10 Blood Culture Stat Vital Signs Vital signs: Vital Signs - 8 hr 12/02/24 11:34 12/02/24 11:35 12/02/24 11:44 Temperature 98.1 F Pulse Rate 72 73 74 Respiratory Rate 18 34 H 36 H Blood Pressure 98/53 L Pulse Oximetry 96 96 97 Oxygen Delivery Method Nasal Cannula Oxygen Flow Rate 4 12/02/24 11:44 12/02/24 11:50 12/02/24 11:50 Temperature Pulse Rate 78 Respiratory Rate 37 H Blood Pressure 102/56 L 101/52 L Pulse Oximetry 95 Oxygen Delivery Method Nasal Cannula Oxygen Flow Rate 4 12/02/24 12:00 12/02/24 12:00 12/02/24 12:10 Temperature Pulse Rate 89 74 Respiratory Rate 39 H 35 H Blood Pressure 103/54 L Pulse Oximetry 96 97 Oxygen Delivery Method Oxygen Flow Rate 12/02/24 12:10 12/02/24 12:20 12/02/24 12:20 Temperature Pulse Rate 74 Respiratory Rate 34 H Blood Pressure 103/51 L 105/51 L Pulse Oximetry 97 Oxygen Delivery Method Oxygen Flow Rate 12/02/24 12:30 12/02/24 12:30 12/02/24 12:40 Temperature Pulse Rate 74 74 Respiratory Rate 33 H 35 H Blood Pressure 107/52 L Pulse Oximetry 96 96 Oxygen Delivery Method Nasal Cannula Oxygen Flow Rate 4 12/02/24 12:40 12/02/24 12:50 12/02/24 12:50 Temperature Pulse Rate 74 Respiratory Rate 35 H Blood Pressure 107/55 L 109/59 L Pulse Oximetry 95 Oxygen Delivery Method Oxygen Flow Rate 12/02/24 13:00 12/02/24 13:00 12/02/24 13:10 Temperature Pulse Rate 72 72 Respiratory Rate 34 H 36 H Blood Pressure 111/56 L Pulse Oximetry 96 95 Oxygen Delivery Method Nasal Cannula Oxygen Flow Rate 4 12/02/24 13:10 Temperature Pulse Rate Respiratory Rate Blood Pressure 109/56 L Pulse Oximetry Oxygen Delivery Method Oxygen Flow Rate MDM - SOB/Dyspnea Lab Data 12/02/24 11:42 12/02/24 11:42 Labs: Lab Results 12/02/24 Range/Units 11:42 WBC 8.5 (4.5-11.0) X10^3/uL RBC 3.73 L (4.5-5.9) X10^6/uL Hgb 12.1 L (13.5-17.5) g/dL Hct 34.1 L (41-53) % MCV 91.3 (80-100) fL MCH 32.4 (26-34) PG MCHC 35.5 (30-36) % RDW 14.5 (11.6-14.8) % Plt Count 135 L (150-400) X10^3/uL Neut % (Auto) 83.2 H (50-75) % Lymph % (Auto) 4.0 L (25-40) % [place] % (Auto) 5.3 (3-14) % Eos % (Auto) 7.2 H (2-4) % Baso % (Auto) 0.3 (0-2) % Neut # (Auto) 7100 H (3102-4680) /uL Lymph # (Auto) 300 L (3067-7604) /uL [place] # (Auto) 400 (0-900) /uL Eos # (Auto) 600 H (0-450) /uL Baso # (Auto) 0 (0-100) /uL PT 21.2 H (9.4-12.5) SECONDS INR 1.9 H (0.9-1.3) Sodium 133 L (137-145) mmol/L Potassium 4.7 (3.4-5.1) mmol/L Chloride 98 (98-107) mmol/L Carbon Dioxide 26 (22-32) mmol/L BUN 25 H (9-20) mg/dL Creatinine 1.03 (0.66-1.25) mg/dL Estimated GFR > 60 (>60) mL/min BUN/Creatinine Ratio 24.3 H (6-22) Glucose 311 H (70-99) mg/dL Lactate 2.0 (0.7-2.1) mmol/L Calcium 8.8 (8.4-10.2) mg/dL Total Bilirubin 1.8 H (0.2-1.3) mg/dL AST 27 (17-59) IU/L ALT 23 (<50) IU/L Alkaline Phosphatase 63 (38-126) U/L Troponin I 0.045 H (0.01-0.034) ng/mL NT-Pro-B Natriuret Pep 3040 H (<450) pg/mL Total Protein 6.8 (6.3-8.2) g/dL Albumin 4.0 (3.5-5.0) g/dL Globulin 2.8 (1.7-4.1) g/dL Albumin/Globulin Ratio 1.4 (1.0-2.8) SARS-CoV-2 (PCR) Negative (Negative) Influenza A (RT-PCR) Flu a negative (NEGATIVE) Influenza B (RT-PCR) Flu b negative (NEGATIVE) RSV (PCR) Negative (Negative) ECG Data Interpretation: Sinus Rhythm PVC HR 72 LA 184 QRS [address]-t wave MDM Narrative Medical decision making narrative: Vital signs, nurse triage note, medication list, previous ER visits, and all imaging studies reviewed. Troponin 1st set 0.045 and 2nd set 0.030 BNP 3040 WBC 8.5 hemoglobin 12.1 platelet 135 INR 1.9 sodium 133 potassium 4.7 chloride 98 CO2 26 BUN 25 creatinine 1.03 glucose 311 T bili 1.8. Chest x-ray showed cardiomegaly with prominent is interstitial marking and small right pleural effusion. Findings concerning for CHF volume overload. Patient given Lasix 40mg IV here. Case discussed with Dr. Cardenas cardiology echo and trend troponin. Case d/w who has graciously accepted the patient for inpatient admission. Discharge Plan Departure Patient Disposition: Admitted as Observation Clinical Impression: CHF (congestive heart failure) Qualifiers: Heart failure type: unspecified Heart failure chronicity: acute Qualified Code(s): I50.9 - Heart failure, unspecified
[2024-12-02 11:54] LABS: Add Manual Diff / Slide Review NO; Hematocrit 34.1 % (41-53); Hemoglobin 12.1 g/dL (13.5-17.5); Lymphocytes Absolute Auto 300 /uL (1100-4500); Mean Corpuscular HGB Conc 35.5 % (30-36); Mean Corpuscular Hemoglobin 32.4 PG (26-34); Mean Corpuscular Volume 91.3 fL (80-100); Platelet Count 135 X10^3/uL (150-400)
[2024-12-02 12:01] LABS: INR 1.9 (0.9-1.3); Prothrombin Time 21.2 SECONDS (9.4-12.5)
[2024-12-02 12:06] LABS: Alanine Aminotransferase 23 IU/L (<50); Albumin 4.0 g/dL (3.5-5.0); Albumin Globulin Ratio 1.4 (1.0-2.8); Alkaline Phosphatase 63 U/L (38-126); Blood Urea Nitrogen 25 mg/dL (9-20); Calcium 8.8 mg/dL (8.4-10.2); Carbon Dioxide 26 mmol/L (22-32); Chloride 98 mmol/L (98-107); Estimated Glomerular Filt Rate > 60 mL/min (>60); Globulin 2.8 g/dL (1.7-4.1); Glucose 311 mg/dL (70-99); HEMOLYSIS < 15 (0-50); Potassium 4.7 mmol/L (3.4-5.1); Sodium 133 mmol/L (137-145); Total Protein 6.8 g/dL (6.3-8.2)
[2024-12-02 12:08] LABS: Lactate (Lactic Acid) 2.0 mmol/L (0.7-2.1)
[2024-12-02 12:18] LABS: NT-proBNP (BNP-Adult 18+) 3040 pg/mL (<450); Troponin I 0.045 ng/mL (0.01-0.034)
[2024-12-02 12:29] LABS: Influenza A - CEPHEID Flu A NEGATIVE (NEGATIVE); Influenza B - CEPHEID Flu B NEGATIVE (NEGATIVE)
[2024-12-02 12:30] LABS: COVID-19 CEPHEID 4-PLEX PCR Negative (Negative)
[2024-12-02] MEDS: FUROSEMIDE 40 MG/4 ML VIAL IV (14:01)
[2024-12-02 14:49] LABS: Troponin I 0.030 ng/mL (0.01-0.034)
--- NOTE | 2024-12-02 15:30 | PM.HP.IH.1 ---
History of Present Illness History of Present Illness Date Patient Seen: 12/02/24 Chief complaint: SOB, Tired, not feeling well Narrative: Pt is an 84yo man with pulmonary fibrosis on 4L O2 at baseline, HTN, atrial fibrillation, ischemic cardiomyopathy with systolic CHF, and hx of steroid-induced DM who presented with SOB and weakness. The pts daughter notes that he has seemed more SOB than usual for the last couple weeks. The pt states that 3 days ago he went off a job and became acutely weaker and more SOB. He is no longer able to comfortably walk from the bathroom to the kitchen without needing to catch his breath. He feels very weak when standing and ambulating. He has no energy to do anything and wants to sleep all day, which is not normal for him. He denies any precipitating event. He denies any recent chest pain, palpitations, cough, fever, chills. He denies any recent illness. He does report some ankle swelling. This came on all of a sudden. The pt reports that he was recently seen by Cardiology and they started him on Furosemide due to concerns for fluid retention. [facility] Medical History (Updated 12/02/24 @ 14:58 by Nick Davison DO) Diabetes Essential hypertension History of vaccination (2011) Hypoglycemia without diagnosis of diabetes mellitus Myocardial infarction (07/2014) Heart failure, systolic CAD (coronary artery disease) Left hip pain (2014) Neck pain (2014) Shoulder pain Itching (2014) Plantar warts (1984) Tinnitus (2011) Elevated PSA (1987) GERD (gastroesophageal reflux disease) (1992) BPH (benign prostatic hyperplasia) (1989) Cataract (2009) Mumps (1947) Osteoarthritis Depression (1983) Anxiety (1949) Atrial fibrillation Hyperlipidemia Interstitial lung disease Acute myocardial infarction of anterior wall (08/09/14) Surgical History Anesthesia Implantable cardioverter-defibrillator (ICD) in situ (12/2014) History of cataract removal with insertion of prosthetic lens (2012) History of angioplasty (07/2014) Status post colonoscopy (2005) Status post transurethral resection of prostate (1997) History of esophageal dilatation (2000) Family History Father Cancer Grandfather Cancer Grandmother Stroke Mother Alcoholism Mental health problem Grandfather Pancreatic cancer Grandfather Cancer Social History marital status: number of children: 4 household members: spouse lives independently: Yes caregiver/support person: No housing: house pets and animals: Yes education level: college occupational status: previously employed special sharan needs: No leisure activities: other other: travel seatbelt use: always helmet use: Yes water heater temp set < 120 deg: Yes working smoke detector in home: Yes fire extinguisher in home: Yes carbon monox detector in home: No firearms in home: Yes firearms unloaded and locked: Yes do you feel safe at home: Yes Smoking Status: Never smoker second hand exposure: No alcohol intake: current substance use type: does not use during the past year weight has: remained stable well-balanced diet: daily or most days daily servings fruits/ve-4 caffeine: Yes eating out: 1-3 times/week Type(s) of exercise: walking frequency: daily duration: 30-45 minutes/day Meds Home Medications and Allergies Home Medications ?Medication ?Instructions ?Recorded ?Confirmed ?Type carvedilol 6.25 mg tablet 6.25 mg PO BID 90 days #180 tabs 04/16/18 12/02/24 History apixaban 5 mg tablet (Eliquis) 5 mg PO BID 10/20/19 12/02/24 History hydroxyzine HCl 10 mg tablet 10 mg PO TID PRN itching #40 tabs 09/24/22 12/02/24 Rx duloxetine 60 mg capsule,delayed 60 mg PO DAILY 12/03/22 12/02/24 History release atorvastatin 40 mg tablet 40 mg PO ONCE PM #90 tabs 03/12/23 12/02/24 Rx prednisone 5 mg tablet 5 mg PO DAILY 12/10/23 12/02/24 History trazodone 50 mg tablet 100 mg (2 x 50 mg) PO ONCE for 10/22/24 12/02/24 Rx insomnia #135 tabs sertraline 100 mg tablet 150 mg (1.5 x 100 mg) PO DAILY 11/09/24 12/02/24 Rx #135 tabs modafinil 100 mg tablet 100 mg PO QAM #90 tabs 11/10/24 12/02/24 Rx gabapentin 300 mg capsule 300 mg PO 3XD #270 caps 11/30/24 12/02/24 Rx furosemide 20 mg tablet 20 mg PO DAILY 12/02/24 12/02/24 History loperamide 2 mg capsule (Imodium 2 mg PO DAILY PRN loose stool 12/02/24 12/02/24 History A-D) nintedanib 100 mg capsule (Ofev) PO 12/02/24 History sacubitril 24 mg-valsartan 26 mg 1 tab PO BID 12/02/24 12/02/24 History tablet sildenafil (pulm.hypertension) 20 mg PO 12/02/24 History mg tablet Allergies Allergy/AdvReac Type Severity Reaction Status Date / Time amiodarone (AMIODARONE) Allergy Severe pulmonary Verified 09/11/24 14:59 fibrosis Exam Vital Signs (past 8 hours): - 12/02/24 11:34 12/02/24 11:35 12/02/24 11:44 Temperature 98.1 F Pulse Rate 72 73 74 Respiratory Rate 18 34 H 36 H Blood Pressure 98/53 L Pulse Oximetry 96 96 97 Oxygen Delivery Method Nasal Cannula Oxygen Flow Rate 4 12/02/24 11:44 12/02/24 11:50 12/02/24 11:50 Temperature Pulse Rate 78 Respiratory Rate 37 H Blood Pressure 102/56 L 101/52 L Pulse Oximetry 95 Oxygen Delivery Method Nasal Cannula Oxygen Flow Rate 4 12/02/24 12:00 12/02/24 12:00 12/02/24 12:10 Temperature Pulse Rate 89 74 Respiratory Rate 39 H 35 H Blood Pressure 103/54 L Pulse Oximetry 96 97 Oxygen Delivery Method Oxygen Flow Rate 12/02/24 12:10 12/02/24 12:20 12/02/24 12:20 Temperature Pulse Rate 74 Respiratory Rate 34 H Blood Pressure 103/51 L 105/51 L Pulse Oximetry 97 Oxygen Delivery Method Oxygen Flow Rate 12/02/24 12:30 12/02/24 12:30 12/02/24 12:40 Temperature Pulse Rate 74 74 Respiratory Rate 33 H 35 H Blood Pressure 107/52 L Pulse Oximetry 96 96 Oxygen Delivery Method Nasal Cannula Oxygen Flow Rate 4 12/02/24 12:40 12/02/24 12:50 12/02/24 12:50 Temperature Pulse Rate 74 Respiratory Rate 35 H Blood Pressure 107/55 L 109/59 L Pulse Oximetry 95 Oxygen Delivery Method Oxygen Flow Rate 12/02/24 13:00 12/02/24 13:00 12/02/24 13:10 Temperature Pulse Rate 72 72 Respiratory Rate 34 H 36 H Blood Pressure 111/56 L Pulse Oximetry 96 95 Oxygen Delivery Method Nasal Cannula Oxygen Flow Rate 4 12/02/24 13:10 12/02/24 13:20 12/02/24 13:20 Temperature Pulse Rate 74 Respiratory Rate 24 Blood Pressure 109/56 L 111/56 L Pulse Oximetry 95 Oxygen Delivery Method Nasal Cannula Oxygen Flow Rate 4 12/02/24 13:30 12/02/24 13:30 12/02/24 13:40 Temperature Pulse Rate 71 71 Respiratory Rate 24 25 H Blood Pressure 108/53 L Pulse Oximetry 96 96 Oxygen Delivery Method Nasal Cannula Nasal Cannula Oxygen Flow Rate 4 4 12/02/24 13:40 12/02/24 13:50 12/02/24 13:50 Temperature Pulse Rate 73 Respiratory Rate 32 H Blood Pressure 112/57 L 105/55 L Pulse Oximetry 97 Oxygen Delivery Method Oxygen Flow Rate 12/02/24 14:00 12/02/24 14:10 12/02/24 14:10 Temperature Pulse Rate 70 72 Respiratory Rate 23 25 H Blood Pressure 113/55 L Pulse Oximetry 96 96 Oxygen Delivery Method Oxygen Flow Rate 12/02/24 14:20 12/02/24 14:20 12/02/24 14:30 Temperature Pulse Rate 72 73 Respiratory Rate 24 23 Blood Pressure 108/58 L Pulse Oximetry 96 97 Oxygen Delivery Method Nasal Cannula Oxygen Flow Rate 4 12/02/24 14:30 12/02/24 14:40 12/02/24 14:40 Temperature Pulse Rate 80 Respiratory Rate 24 Blood Pressure 109/56 L 145/63 H Pulse Oximetry 98 Oxygen Delivery Method Nasal Cannula Oxygen Flow Rate 4 Oxygen Delivery Method Nasal Cannula Oxygen Flow Rate 4 Narrative Exam Narrative: Gen: NAD, sitting comfortably in bed, speaking easily in complete sentences HEENT: normocephalic, atraumatic, sclera clear Neck: no JVD, no LAD CV: RRR, no murmurs Resp: clear to auscultation bilaterally, no wheezes or crackles Abd: soft, nontender, nondistended Ext: no significant edema Neuro: no gross deficits Objective Labs 12/02/24 11:42 12/02/24 11:42 Labs: Laboratory Results - last 24 hr 12/02/24 12/02/24 11:42 14:15 WBC 8.5 RBC 3.73 L Hgb 12.1 L Hct 34.1 L MCV 91.3 MCH 32.4 MCHC 35.5 RDW 14.5 Plt Count 135 L Neut % (Auto) 83.2 H Lymph % (Auto) 4.0 L [place] % (Auto) 5.3 Eos % (Auto) 7.2 H Baso % (Auto) 0.3 Neut # (Auto) 7100 H Lymph # (Auto) 300 L [place] # (Auto) 400 Eos # (Auto) 600 H Baso # (Auto) 0 PT 21.2 H INR 1.9 H Sodium 133 L Potassium 4.7 Chloride 98 Carbon Dioxide 26 BUN 25 H Creatinine 1.03 Estimated GFR > 60 BUN/Creatinine Ratio 24.3 H Glucose 311 H Lactate 2.0 Calcium 8.8 Total Bilirubin 1.8 H AST 27 ALT 23 Alkaline Phosphatase 63 Troponin I 0.045 H 0.030 NT-Pro-B Natriuret Pep 3040 H Total Protein 6.8 Albumin 4.0 Globulin 2.8 Albumin/Globulin Ratio 1.4 SARS-CoV-2 (PCR) Negative Influenza A (RT-PCR) Flu a negative Influenza B (RT-PCR) Flu b negative RSV (PCR) Negative Assessment & Plan Assessment & Plan narrative: Pt is an 84yo man with pulmonary fibrosis on 4L O2 at baseline, HTN, atrial fibrillation, ischemic cardiomyopathy with systolic CHF, and hx of steroid-induced DM who presented with SOB. 1) Acute on chronic CHF exacerbation: Last Echo 09/2024 with EF 21%. s/p 40mg IV Lasix in the ED. Initial troponin elevated but on repeat downtrending. BNP elevated, CXR with evidence pulmonary edema. - Echo tomorrow due to acute nature of symptom onset - Telemetry - Re-evaluate for additional Lasix in the AM - Oxygen supplementation as needed, baseline 4L 2) Hyperglycemia: Hx of steroid-induced DM however recently well controlled off medications - [facility] blood sugar checks - A1C in the AM - Sliding scale insulin coverage 3) HTN: BP variable, overall in acceptable range - Continue home Lisinopril, Carvedilol 4) Paroxysmal atrial fibrillation: Rate controlled, currently in sinus rhythm - Continue home Eliquis 5) CAD, Ischemic Cardiomyopathy: - Continue home Statin 6) Anxiety: Stable - Continue home Sertraline - Hydroxyzine PRN DVT ppx: on Eliquis Code: DNR FEN: Cardiac diet Dispo: Pending improvement in SOB, above testing. Time-Based Coding :: [TOTAL MINUTES] spent with patient and on the chart (including review of chart, obtaining history, exam, reviewing outside data, placing orders, documenting exam and treatment plan, and counseling patient) on [DATE]. PROFEE [employer] Document charge(s): Yes Charge Codes Initial inpatient/observation care: 13152
--- NOTE | 2024-12-02 15:44 | DI.ECHO.S_ITS ---
[facility]---------+ [facility] : : [address] : : [place] : : [id number] : : Phone: [phone] Echocardiogram Report + + :Name: GUCCI BROWN Study Date: 12/03/2024 Height: 68 in : :Hospital ReadingLocation: Weight: 160 lb: : Gender: Male BSA: 1.9 m2 : :: 1940 Age: 84 yrs BP: 99/48 mmHg: :Reason For Study: CONGESTIVE HEART FAILURE : :Ordering Physician: MAURICIO, : :CHRISTELLE Performed By: Genevieve Le : :Referring: CHRISTELLE MARTÍNEZ : + + Interpretation Summary Normal sinus rhythm. Moderately dilated left ventricle with normal wall thickness. Worst movement is demonstrated by the apex; otherwise there is severe global hypokinesis. Ejection fraction is 20-25%. EPSS is 2 cm consistent with cardiomyopathy. Patient has known ischemic cardiomyopathy in the setting of anterior STEMI. Mild left atrial enlargement; mild right ventricular enlargement. Aortic valve is a trileaflet structure characterized by moderately thickened and calcified leaflets. there is moderate associated aortic regurgitation. Mild mitral annular calcification. Mildly dilated ascending aorta measuring 4 cm in diameter. Compared to prior echo obtained June 22, 2016, LV dilation is worse. Left ventricular end-diastolic dimension increased from 5.8 cm to 6.4 cm. LV slightly less dynamic. Procedure: A two-dimensional transthoracic echocardiogram with color flow and Doppler was performed. The study quality was technically adequate. Comparison is made with the echocardiogram of 06/22/2016. The heart rate ranged between 79-84 bpm during the study. Left Ventricle: The left ventricle is moderately dilated. Left ventricular wall thickness is borderline increased. The ejection fraction is estimated to be 20-25%. There is apical hypokinesis. Diastolic function could not be accurately assessed due to unobtainable data. Right Ventricle: There is a pacemaker lead in the right ventricle. The right ventricle is mildly dilated. The right ventricular systolic function is normal. Atria: The left atrium is mildly dilated. Right atrial size is normal. There is no Doppler evidence for an interatrial shunt. Mitral Valve: There is mild to moderate mitral annular calcification. The mitral valve leaflets appear mildly thickened. There is trace mitral regurgitation. Aortic Valve: The aortic valve is trileaflet. The aortic valve opens well. There is no aortic valve stenosis. There is mild aortic regurgitation. Tricuspid Valve: The tricuspid valve leaflets are thin and pliable. There is trace tricuspid regurgitation. Pulmonary artery pressures cannot be estimated because of the lack of a measurable TR jet velocity but the IVC suggests a CVP of around 3 mmHg. Pulmonic Valve: The pulmonic valve leaflets are thin and pliable; valve motion is normal. There is mild pulmonic regurgitation. Great Vessels: The aortic root is mildly dilated. The ascending aorta is mildly enlarged. The IVC is of normal diameter and collapses greater than 50% with a sniff. This suggests a low right atrial pressure of 3 mm Hg. Pericardium/ Pleura There is no pericardial effusion. There is no pleural effusion. MMode/2D Measurements & Calculations LVIDd: 6.4 cm LVOT diam: 2.3 cm LVIDs: 5.8 cm Ao root diam: 4.2 cm FS: 9.4 % asc Aorta Diam: 3.9 cm EPSS: 2.0 cm Ao Arch Diam (Prox Trans): 3.4 cm IVSd: 0.79 cm LVPWd: 1.1 cm LV franks. diameter/BSA (cm/m^2): 3.5 LV sys. diameter/BSA (cm/m^2): 3.1 LA A2 area: 23.3 cm2 RA long axis: 4.8 cm LA A4 area: 18.7 cm2 RA area: 13.2 cm2 LA length (vol): 5.7 cm RA vol: 30.8 ml LA vol: 65.1 ml RA : 16.6 ml/m2 LA vol index: 35.0 ml/m2 IVC diam: 1.3 cm RVD1 (basal): 3.9 cm RVD2 (mid): 3.7 cm TAPSE: 1.7 cm Doppler Measurements & Calculations Ao V2 max: 129.3 cm/sec LVOT Max Skinny: 84.9 cm/sec Ao V2 mean: 95.0 cm/sec LV V1 max P.9 mmHg Ao max P.7 mmHg LV V1 VTI: 16.5 cm Ao mean P.0 mmHg FARIBA(I,D): 2.9 cm2 Ao V2 VTI: 24.0 cm FARIBA(V,D): 2.8 cm2 sev ratio: 0.69 FARIBA indexed to BSA (cm^2/m^2): 1.6 AI P1/2t: 386.4 msec AI dec slope: 301.0 cm/sec2 MV E max skinny: 104.0 cm/sec PA V2 max: 97.8 cm/sec MV A max skinny: 1.8 cm/sec PA V2 mean: 66.1 cm/sec MV E/A: 57.3 PA mean P.0 mmHg Med Peak E' Skinny: 7.6 cm/sec PA pr(Accel): 49.9 mmHg E/E' med: 13.6 Lat Peak E' Skinny: 16.6 cm/sec E/E' lat: 6.2 E/e' average: 9.9 MV dec time: 0.15 sec SV(LVOT): 69.5 ml Electronically signed by: Edith Mckeon M.D. on Reading Physician:12/03/2024 05:16 PM
[2024-12-02] MEDS: GABAPENTIN 300 MG CAPSULE PO ×2 (16:54→20:36)
[2024-12-02] MEDS: OFEV 100 MG 1 EACH PO (17:23)
[2024-12-02] MEDS: SILDENAFIL 20 MG 1 EACH PO ×2 (18:07→20:36)
[2024-12-02] MEDS: APIXABAN 5 MG TABLET PO (20:36)
[2024-12-02] MEDS: ATORVASTATIN 20 MG TABLET 40 MG PO (20:36)
[2024-12-02] MEDS: Sacubitril-Valsartan 24-26 mg tablet 1 EACH PO (20:36)
[2024-12-02] MEDS: INSULIN LISPRO 100 UNIT/ML 3ML VIAL SUBCUT (23:18)
[2024-12-03] VITALS: BP 96/45; PULSE 64; RESP 17; TEMP 36.2; O2SAT 97
[2024-12-03 04:00] VITALS: BP 99/48; PULSE 79; RESP 16; TEMP 36.5; O2SAT 95
[2024-12-03 06:19] VITALS: O2SAT 95
[2024-12-03 06:26] LABS: Add Manual Diff / Slide Review NO; Hematocrit 30.5 % (41-53); Hemoglobin 11.1 g/dL (13.5-17.5); Lymphocytes Absolute Auto 700 /uL (1100-4500); Mean Corpuscular HGB Conc 36.5 % (30-36); Mean Corpuscular Hemoglobin 32.8 PG (26-34); Mean Corpuscular Volume 90.0 fL (80-100); Platelet Count 126 X10^3/uL (150-400)
[2024-12-03 06:44] LABS: Anisocytosis 1+; Microcytosis 1+
[2024-12-03 06:51] LABS: Blood Urea Nitrogen 28 mg/dL (9-20); Calcium 8.8 mg/dL (8.4-10.2); Carbon Dioxide 27 mmol/L (22-32); Chloride 99 mmol/L (98-107); Estimated Glomerular Filt Rate > 60 mL/min (>60); Glucose 181 mg/dL (70-99); HEMOLYSIS < 15 (0-50); Potassium 3.5 mmol/L (3.4-5.1); Sodium 133 mmol/L (137-145)
[2024-12-03 06:52] LABS: Hemoglobin A1C% w Est Avg Glu 7.4 % (4.0-6.0)
[2024-12-03 06:56] LABS: NT-proBNP (BNP-Adult 18+) 1940 pg/mL (<450)
--- NOTE | 2024-12-03 07:53 | P.PN_ITS ---
Subjective Subjective Date Patient Seen: 12/03/24 Time Patient Seen: 07:53 Interval history: Asked to see patient today in Dr. Parks's absence. Admitted yesterday with increasing weakness and modest hypoxia with some evidence of congestive heart failure on imaging and lab work. Received extra dose of parental furosemide This morning O2 saturation seems stable on patient's usual supplemental oxygen Lab work is unremarkable except for hyperglycemia. A1c 7.4 Echocardiogram ordered for this morning (and performed although not interpreted), previous echo in September 2024 shows left ventricular ejection fraction 21% by report from cardiology notes (copy of that study not available in our EMR) (yet) Seemingly improved after a bit of diuresis. Patient's spouse tell me that he was much better after diuresis in the ER even yesterday. Quite anxious to go home feels like he would do better at home Exam Vital Signs (past 8 hours): - 12/03/24 00:00 12/03/24 04:00 12/03/24 06:19 Temperature 97.1 F L 97.7 F Pulse Rate 64 79 Respiratory Rate 17 16 Blood Pressure 96/45 L 99/48 L Pulse Oximetry 97 95 95 Oxygen Delivery Method Nasal Cannula Oxygen Flow Rate 4 3 3 Fraction of Inspired Oxygen 32 Fraction of Inspired Oxygen 32 SaO2/FiO2 Ratio 296 Oxygen Delivery Method Nasal Cannula Oxygen Flow Rate 3 Objective Labs 12/03/24 05:19 12/03/24 05:19 Labs: Laboratory Results - last 24 hr 12/02/24 12/02/24 12/02/24 11:42 14:15 16:43 WBC 8.5 RBC 3.73 L Hgb 12.1 L Hct 34.1 L MCV 91.3 MCH 32.4 MCHC 35.5 RDW 14.5 Plt Count 135 L Neut % (Auto) 83.2 H Lymph % (Auto) 4.0 L Brown % (Auto) 5.3 Eos % (Auto) 7.2 H Baso % (Auto) 0.3 Neut # (Auto) 7100 H Lymph # (Auto) 300 L Brown # (Auto) 400 Eos # (Auto) 600 H Baso # (Auto) 0 Platelet Estimate RBC Morphology Anisocytosis Microcytosis PT 21.2 H INR 1.9 H Sodium 133 L Potassium 4.7 Chloride 98 Carbon Dioxide 26 BUN 25 H Creatinine 1.03 Estimated GFR > 60 BUN/Creatinine Ratio 24.3 H Glucose 311 H POC Whole Bld Glucose 303 H Hemoglobin A1c Lactate 2.0 Calcium 8.8 Total Bilirubin 1.8 H AST 27 ALT 23 Alkaline Phosphatase 63 Troponin I 0.045 H 0.030 NT-Pro-B Natriuret Pep 3040 H Total Protein 6.8 Albumin 4.0 Globulin 2.8 Albumin/Globulin Ratio 1.4 SARS-CoV-2 (PCR) Negative Influenza A (RT-PCR) Flu a negative Influenza B (RT-PCR) Flu b negative RSV (PCR) Negative 12/02/24 12/03/24 19:48 05:19 WBC 7.1 RBC 3.38 L Hgb 11.1 L Hct 30.5 L MCV 90.0 MCH 32.8 MCHC 36.5 H RDW 14.3 Plt Count 126 L Neut % (Auto) 72.1 Lymph % (Auto) 9.4 L Brown % (Auto) 7.8 Eos % (Auto) 10.1 H Baso % (Auto) 0.6 Neut # (Auto) 5100 Lymph # (Auto) 700 L Brown # (Auto) 600 Eos # (Auto) 700 H Baso # (Auto) 0 Platelet Estimate Decreased on smear RBC Morphology See below Anisocytosis 1+ H Microcytosis 1+ H PT INR Sodium 133 L Potassium 3.5 D Chloride 99 Carbon Dioxide 27 BUN 28 H Creatinine 0.98 Estimated GFR > 60 BUN/Creatinine Ratio 28.6 H Glucose 181 H D POC Whole Bld Glucose 269 H Hemoglobin A1c 7.4 H Lactate Calcium 8.8 Total Bilirubin AST ALT Alkaline Phosphatase Troponin I NT-Pro-B Natriuret Pep 1940 H Total Protein Albumin Globulin Albumin/Globulin Ratio SARS-CoV-2 (PCR) Influenza A (RT-PCR) Influenza B (RT-PCR) RSV (PCR) [facility] Medical History (Updated 12/03/24 @ 07:48 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 LV (left ventricular) mural thrombus Chronic respiratory failure CHF (congestive heart failure) Elevated PSA (12/12/10) Diabetes Essential hypertension History of vaccination (2011) Hypoglycemia without diagnosis of diabetes mellitus Myocardial infarction (07/2014) Heart failure, systolic CAD (coronary artery disease) Left hip pain (2014) Neck pain (2014) Shoulder pain Itching (2014) Plantar warts (1984) Tinnitus (2011) Elevated PSA (1987) GERD (gastroesophageal reflux disease) (1992) BPH (benign prostatic hyperplasia) (1989) Cataract (2009) Mumps (1947) Osteoarthritis Depression (1983) Anxiety (1949) Atrial fibrillation Hyperlipidemia Interstitial lung disease Acute myocardial infarction of anterior wall (08/09/14) Surgical History Anesthesia Implantable cardioverter-defibrillator (ICD) in situ (12/2014) History of cataract removal with insertion of prosthetic lens (2012) History of angioplasty (07/2014) Status post colonoscopy (2005) Status post transurethral resection of prostate (1997) History of esophageal dilatation (2000) Family History Father Cancer Grandfather Cancer Grandmother Stroke Mother Alcoholism Mental health problem Grandfather Pancreatic cancer Grandfather Cancer Social History marital status: number of children: 4 household members: spouse lives independently: Yes caregiver/support person: No housing: house pets and animals: Yes education level: college occupational status: previously employed special sharan needs: No leisure activities: other other: travel seatbelt use: always helmet use: Yes water heater temp set < 120 deg: Yes working smoke detector in home: Yes fire extinguisher in home: Yes carbon monox detector in home: No firearms in home: Yes firearms unloaded and locked: Yes do you feel safe at home: Yes Smoking Status: Never smoker second hand exposure: No alcohol intake: current substance use type: does not use during the past year weight has: remained stable well-balanced diet: daily or most days daily servings fruits/ve-4 caffeine: Yes eating out: 1-3 times/week Type(s) of exercise: walking frequency: daily duration: 30-45 minutes/day Assessment & Plan Assessment & Plan narrative: 1. Acute on chronic congestive heart failure-continue with furosemide but will switch to oral furosemide but increase baseline dose from 20 to 40 mg a day. Plan to check electrolytes and renal function tomorrow, if he is still here. Echocardiogram pending 2. Diabetes-inadequate control during this hospitalization thus far. Will switch to a carb controlled diet and increased coverage insulin. May need long- acting baseline insulin as well. A1c this morning is not horrible and probably very much acceptable for patient given his comorbidities and age, so overall blood sugar control probably acceptable 3. Hypertension-numbers on the lower side but within his usual range. Continue to monitor carefully with increased diuresis (this is 1 of the reasons I did not continue with parenteral diuresis. 4. History of paroxysmal atrial fibrillation-continues on Eliquis both for this plus his history of a mural thrombus. The appears to be in sinus rhythm. Continue to monitor for now with no change in meds 5. Weakness-1 of the reasons for admission was increased weakness inability to even ambulate from room to room in his home. Will have PT and OT see him here today as well. If stable on his feet may well be able to discharge home as he would like 6. Disposition-likely able to return home as it appears his respiratory status is somewhat improved. Will more formally evaluate him as above and probable ready for discharge either today or certainly by tomorrow the 04 of December unless clinical status declines in some fashion Time-Based Coding :: [TOTAL MINUTES] spent with patient and on the chart (including review of chart, obtaining history, exam, reviewing outside data, placing orders, documenting exam and treatment plan, and counseling patient) on [DATE]. PROFEE Ballistics Expert Forensic Document charge(s): Yes Charge Codes Subsequent inpatient/observation care: 66640
[2024-12-03 07:57] VITALS: BP 117/53; PULSE 85; RESP 22; TEMP 36.6; O2SAT 94
[2024-12-03] MEDS: INSULIN LISPRO 100 UNIT/ML 3ML VIAL SUBCUT (07:58)
[2024-12-03] MEDS: SERTRALINE 50 MG TABLET 150 MG PO (08:05)
[2024-12-03] MEDS: SILDENAFIL 20 MG 1 EACH PO (08:05)
[2024-12-03] MEDS: OFEV 100 MG 1 EACH PO (08:05)
[2024-12-03] MEDS: Sacubitril-Valsartan 24-26 mg tablet 1 EACH PO (08:05)
[2024-12-03] MEDS: FUROSEMIDE 20 MG TABLET 40 MG PO (08:06)
[2024-12-03] MEDS: GABAPENTIN 300 MG CAPSULE PO (08:06)
[2024-12-03] MEDS: APIXABAN 5 MG TABLET PO (08:21)
[2024-12-03] MEDS: MODAFINIL 100 MG 100 EACH PO (09:42)
[2024-12-03 10:01] VITALS: O2SAT 93
--- NOTE | 2024-12-03 10:13 | PM.DS.IH.1 ---
History of Present Illness History of Present Illness Date Patient Seen: 12/03/24 Time Patient Seen: 10:13 Chief complaint: SOB, Tired, not feeling well Narrative: Pt is an 84yo man with pulmonary fibrosis on 4L O2 at baseline, HTN, atrial fibrillation, ischemic cardiomyopathy with systolic CHF, and hx of steroid-induced DM who presented with SOB and weakness. The pts daughter notes that he has seemed more SOB than usual for the last couple weeks. The pt states that 3 days ago he went off a job and became acutely weaker and more SOB. He is no longer able to comfortably walk from the bathroom to the kitchen without needing to catch his breath. He feels very weak when standing and ambulating. He has no energy to do anything and wants to sleep all day, which is not normal for him. He denies any precipitating event. He denies any recent chest pain, palpitations, cough, fever, chills. He denies any recent illness. He does report some ankle swelling. This came on all of a sudden. The pt reports that he was recently seen by Cardiology and they started him on Furosemide due to concerns for fluid retention. {from Dr. Parks's H&P 12/02/2024} Discharge Providers Provider Date of admission: 12/02/24 14:59 Discharge Date: 12/03/24 Primary care physician: Cici Parks MD Consults: 12/02/24 20:24 Consult to Physical Therapy Evaluate & Treat Comment: Physician Instructions: Evaluate and Treat 12/03/24 07:49 Consult to Occupational Therapy Evaluate & Treat Comment: Physician Instructions: Evaluate and treat Consult to Physical Therapy Evaluate & Treat Comment: Physician Instructions: Evaluate and Treat Discharge provider: Nick Lozano MD Summary Hospital Course Discharge Diagnosis: 1. Acute on chronic congestive heart failure with reduced ejection fraction 2. Pulmonary fibrosis 3. Chronic respiratory failure 4. Ischemic cardiomyopathy 5. Essential hypertension 6. Hypothyroidism 7. Diabetes 8. Hyperlipidemia Hospital Course: As above patient was admitted after presenting with increased weakness etcetera at home. Evidence of acute congestive heart failure was found and he was treated with parenteral diuretics in the emergency department and continued on a higher dose diuretics during his hospitalization He rapidly improved with this was up and around on morning of discharge felt to be approaching baseline if not already there from a activity and breathing standpoint. Indeed his oxygen requirement remained at baseline at 4 L/min nasal cannula continuous Repeat echocardiography was performed, but results were not available at time of this dictation. Most recent results demonstrated ejection fraction of about 21% (this was done at the [facility] in September 2024) He was discharged continue all of his usual medications but increase his furosemide from 20 mg to 40 mg daily with close follow up with his PCP Patient's blood sugar is also not well controlled during this hospitalization but A1c was performed and demonstrated adequate control at home with an A1c of 7.4. This will need to be addressed as an outpatient as well Patient's other medical issues including his chronic respiratory failure with chronic oxygen replacement therapy pulmonary fibrosis hypertension hyperlipidemia or felt to be stable and no changes were made Status at Discharge Cognitive/behavioral status at discharge: at baseline, oriented Functional status at discharge: independent ambulation Overall status at discharge: patient is progressing back to baseline Time Spent with Patient Time spent: Less than 30 minutes Exam Vital Signs (past 8 hours): - 12/03/24 04:00 12/03/24 06:19 12/03/24 07:57 Temperature 97.7 F 97.9 F Pulse Rate 79 85 Respiratory Rate 16 22 Blood Pressure 99/48 L 117/53 L Pulse Oximetry 95 95 94 Oxygen Delivery Method Nasal Cannula Oxygen Flow Rate 3 3 Fraction of Inspired Oxygen 32 12/03/24 10:01 Temperature Pulse Rate Respiratory Rate Blood Pressure Pulse Oximetry 93 Oxygen Delivery Method Nasal Cannula Oxygen Flow Rate 4 Fraction of Inspired Oxygen Fraction of Inspired Oxygen 32 SaO2/FiO2 Ratio 296 Oxygen Delivery Method Nasal Cannula Oxygen Flow Rate 4 Objective Labs 12/03/24 05:19 12/03/24 05:19 Labs: Laboratory Results - last 24 hr 12/02/24 12/02/24 12/02/24 11:42 14:15 16:43 WBC 8.5 RBC 3.73 L Hgb 12.1 L Hct 34.1 L MCV 91.3 MCH 32.4 MCHC 35.5 RDW 14.5 Plt Count 135 L Neut % (Auto) 83.2 H Lymph % (Auto) 4.0 L [place] % (Auto) 5.3 Eos % (Auto) 7.2 H Baso % (Auto) 0.3 Neut # (Auto) 7100 H Lymph # (Auto) 300 L [place] # (Auto) 400 Eos # (Auto) 600 H Baso # (Auto) 0 Platelet Estimate RBC Morphology Anisocytosis Microcytosis PT 21.2 H INR 1.9 H Sodium 133 L Potassium 4.7 Chloride 98 Carbon Dioxide 26 BUN 25 H Creatinine 1.03 Estimated GFR > 60 BUN/Creatinine Ratio 24.3 H Glucose 311 H POC Whole Bld Glucose 303 H Hemoglobin A1c Lactate 2.0 Calcium 8.8 Total Bilirubin 1.8 H AST 27 ALT 23 Alkaline Phosphatase 63 Troponin I 0.045 H 0.030 NT-Pro-B Natriuret Pep 3040 H Total Protein 6.8 Albumin 4.0 Globulin 2.8 Albumin/Globulin Ratio 1.4 SARS-CoV-2 (PCR) Negative Influenza A (RT-PCR) Flu a negative Influenza B (RT-PCR) Flu b negative RSV (PCR) Negative 12/02/24 12/03/24 19:48 05:19 WBC 7.1 RBC 3.38 L Hgb 11.1 L Hct 30.5 L MCV 90.0 MCH 32.8 MCHC 36.5 H RDW 14.3 Plt Count 126 L Neut % (Auto) 72.1 Lymph % (Auto) 9.4 L [place] % (Auto) 7.8 Eos % (Auto) 10.1 H Baso % (Auto) 0.6 Neut # (Auto) 5100 Lymph # (Auto) 700 L [place] # (Auto) 600 Eos # (Auto) 700 H Baso # (Auto) 0 Platelet Estimate Decreased on smear RBC Morphology See below Anisocytosis 1+ H Microcytosis 1+ H PT INR Sodium 133 L Potassium 3.5 D Chloride 99 Carbon Dioxide 27 BUN 28 H Creatinine 0.98 Estimated GFR > 60 BUN/Creatinine Ratio 28.6 H Glucose 181 H D POC Whole Bld Glucose 269 H Hemoglobin A1c 7.4 H Lactate Calcium 8.8 Total Bilirubin AST ALT Alkaline Phosphatase Troponin I NT-Pro-B Natriuret Pep 1940 H Total Protein Albumin Globulin Albumin/Globulin Ratio SARS-CoV-2 (PCR) Influenza A (RT-PCR) Influenza B (RT-PCR) RSV (PCR) [facility] Medical History correction current use of anticoagulant LV (left ventricular) mural thrombus Chronic respiratory failure CHF (congestive heart failure) Elevated PSA (12/12/10) Diabetes Essential hypertension History of vaccination (2011) Hypoglycemia without diagnosis of diabetes mellitus Myocardial infarction (07/2014) Heart failure, systolic CAD (coronary artery disease) Left hip pain (2015) Neck pain (2015) Shoulder pain Itching (2015) Plantar warts (1984) Tinnitus (2011) Elevated PSA (1987) GERD (gastroesophageal reflux disease) (1992) BPH (benign prostatic hyperplasia) (1989) Cataract (2009) Mumps (1947) Osteoarthritis Depression (1983) Anxiety (1949) Atrial fibrillation Hyperlipidemia Interstitial lung disease Acute myocardial infarction of anterior wall (08/09/14) Surgical History Anesthesia Implantable cardioverter-defibrillator (ICD) in situ (12/2014) History of cataract removal with insertion of prosthetic lens (2012) History of angioplasty (07/2014) Status post colonoscopy (2005) Status post transurethral resection of prostate (1997) History of esophageal dilatation (2000) Family History Father Cancer Grandfather Cancer Grandmother Stroke Mother Alcoholism Mental health problem Grandfather Pancreatic cancer Grandfather Cancer Social History marital status: number of children: 4 household members: spouse lives independently: Yes caregiver/support person: No housing: house pets and animals: Yes education level: college occupational status: previously employed special sharan needs: No leisure activities: other other: travel seatbelt use: always helmet use: Yes water heater temp set < 120 deg: Yes working smoke detector in home: Yes fire extinguisher in home: Yes carbon monox detector in home: No firearms in home: Yes firearms unloaded and locked: Yes do you feel safe at home: Yes Smoking Status: Never smoker second hand exposure: No alcohol intake: current substance use type: does not use during the past year weight has: remained stable well-balanced diet: daily or most days daily servings fruits/ve-4 caffeine: Yes eating out: 1-3 times/week Type(s) of exercise: walking frequency: daily duration: 30-45 minutes/day Discharge Plan Discharge Plan Patient Disposition: Home Discharge orders & Medications Prescriptions: New nintedanib 100 mg capsule 100 mg PO Q12H Qty: 1 0RF Continued prednisone 5 mg tablet 5 mg PO DAILY Eliquis 5 mg tablet 5 mg PO BID hydroxyzine HCl 10 mg tablet 10 mg PO TID PRN (Reason: itching) Qty: 40 2RF duloxetine 60 mg capsule,delayed release(DR/EC) 60 mg PO DAILY atorvastatin 40 mg tablet 40 mg PO ONCE PM Qty: 90 3RF trazodone 50 mg tablet 100 mg PO ONCE Qty: 135 0RF sertraline 100 mg tablet 150 mg PO DAILY Qty: 135 0RF modafinil 100 mg tablet 100 mg PO QAM Qty: 90 3RF gabapentin 300 mg capsule 300 mg PO 3XD Qty: 270 0RF carvedilol 6.25 mg tablet 6.25 mg PO BID 90 Days Qty: 180 Ofev 100 mg capsule PO sacubitril-valsartan 24-26 mg tablet 1 tab PO BID loperamide [Imodium A-D] 2 mg capsule 2 mg PO DAILY PRN (Reason: loose stool) Changed furosemide 20 mg tablet 40 mg PO DAILY Qty: 180 0RF sildenafil (pulm.hypertension) 20 mg tablet 20 mg PO TID Qty: 30 0RF Follow up/Referrals: Cici Parks MD [Primary Care Provider, Family Practice] - 1 Week Discharge Health Status Multidrug resistant organism: No MDRO Diet/Activity/Treatments Diet: Carb-consistent/Diabetic and Low-sodium Oxygen: 4 l/min RI continuous Visit Report/Discharge Packet Stand Alone Forms: Congestive Heart Failure, Patient Portal/API Discharge Data Primary Care Provider: Cici Parks Attending Provider: Cici Parks Admit Date/Time: 12/02/24 14:59 IH PROFEE Charge Codes Discharge inpatient/observation: [id number]
--- NOTE | 2024-12-03 11:22 | OT.IPNOTE ---
Per nursing pt independent in the room and has not OT needs. Pt to discharge. Discharge OT eval orders.
--- NOTE | 2024-12-03 11:54 | CM.DANOTE ---
Patient is an 84 yo male who was admitted OBS Status on 12/02/24 for SOB/Weakness. Pt has [facility] and [employer] for insurance and his PCP is Dr. Cici Parks at [facility]. EMR was reviewed. Per MD, pt with hx of pulmonary fibrosis with home O2 4L at baseline and hx of AFIB. Pt admitted after several days SOB and increased weakness and being treated for CHF exac with prior Echo showing 21% EF and new Echo ordered. Pt appears to have improved with diuresis and PT/OT pending but likely stable for discharge later today. SW met bedside with pt and explained role and he confirms he lives in [place] with his supportive spouse and also has local family (4 adult children) who can assist as needed. Pt states he does not typically use DME for ambulation and denies any recent hx of HH or SNF and spouse is his primary DPOA. Pt preference is to discharge home today and states family will be bedside around 1130 to transport him home and he does not anticipate any needs for d/c. SW updated RN who is getting his dc pwk printed and will take out his IV and no concerns noted. Plan: Patient to d/c home today via family POV and outpt f/u and no further SW needs at this time. CYN Tamayo Discharge Planning/Care Management Advanced directive, confirm from CLINIC Start: 12/02/24 16:09 Freq: Q24H Status: Active Protocol: Document 12/02/24 16:09 LW (Rec: 12/02/24 16:24 LW [id number]) Advance Directive, confirm on record Time 16:24 Person contacted clinic Copy received Yes CM Discharge Assessment Start: 12/02/24 15:52 Freq: Status: Active Protocol: Document 12/03/24 11:52 BF (Rec: 12/03/24 11:54 BF [id number]) Discharge Planning Assessment Assigned Discharge CYN Hernandez Machine Rough Rounder Provider Dr. Cici Parks Insurance Medicare DPOA/Assigned spouse Margareth Designee Name Contact Information [phone] Advance Directives? Yes Advance Directives No on File History Provided By Patient,Medical Record Has Patient been No admitted in last 30 days? Prior Living House Arrangements Household Members spouse Type of Drives own vehicle transporation used prior to admit Independent with ADL Yes 's Is patient alert and Yes oriented? Caregiver for No Another Barriers to No Discharge Discharge Plan Home Transportation Family to transport at d/c Arrangement Referrals Initiated None needed Whiteboard Updated Yes in Patient Room with name and ext. # of Telecommunications Field Engineer Review Status In Process Please Provide Date 12/03/24 Initial DC Assessment Was Performed Next Review Type Continued Stay Review
--- NOTE | 2024-12-03 11:57 | PC.NURSE ---
Patient is A&OX4. VSS, afebrile. He has slightly darker colored urine this a.m. He is back to baseline on oxygen at 3-4 LNC. He is evaluated by MD at bedside. After breakfast which patient tolerates well per MD instructions,he gets up to mobilze around the unit. He does several laps with w/o difficulty. He is cleared for discharge home today with shortly afterwards. He verbalizes understanding of medications and plans to follow up soon with MD Parks. arrives to transport patient and [employer] escorts him via w/ch to private vehicle for discharge home today at 1130 with all of his personal belongings, including home meds from pharmacy.
== END 2024-12-03 11:30 | disposition home or self-care (01) ==
LOC: ED 14:59 → AC 14:59
PROVIDERS: Admitting Provider Family Medicine; Emergency Provider Family Medicine; PCP Family Medicine; Referring Provider Family Medicine; Visit Provider Family Medicine
DX: I11.0 Hypertensive heart disease with heart failure (principal); I50.23 Acute on chronic systolic (congestive) heart failure; J84.10 Pulmonary fibrosis, unspecified; I25.10 Atherosclerotic heart disease of native coronary artery without angina pectoris; I48.0 Paroxysmal atrial fibrillation; E11.65 Type 2 diabetes mellitus with hyperglycemia; F41.9 Anxiety disorder, unspecified; Z99.81 Dependence on supplemental oxygen; Z79.01 Long term (current) use of anticoagulants; I25.5 Ischemic cardiomyopathy
CPT/HCPCS: 36415; 71045; 80048; 80053; 82962; 83036; 83605; 83880; 84484; 85025; 85610; 87040; 87637; 93005; 93306; 96372; 96374; 99223; 99239; 99285; G0378; J1815; J1938